=== PATIENT | female | born 1950 | race African-American/Black ===

== ENCOUNTER 2017-01-02 17:16 | Inpatient (IN) | payer MEDICARE, MEDICAID ==
[~2017-01-02] VITALS: Ht 167.6 cm; Wt 85.3 kg
[~2017-01-02 17:16] MED LIST: AMLODIPINE BESY10 MG ORAL; CATAPRES0.2 MG ORAL; HYDRALAZINE HC100 MG ORAL; MUSCLE SPASM MED; NEPHROVITE1 TAB ORAL; PAIN PILL; RENVELA800 MG ORAL; UNOBMED; VIT; VITAMIN D31000 UNI1 PO; XANAX0.25 MG ORAL; [UNRECOGNIZED DRUG - REMARK]
[2017-01-02 18:00] VITALS: BP 222/123
[2017-01-02] MEDS ORDERED: NEPRO CARB STE237 ML PO (18:58)
[2017-01-02] MEDS ORDERED: LOSARTAN POTASS50 MG ORAL (18:58)
[2017-01-02 20:00] VITALS: BP 215/120
[2017-01-02] MEDS: cloNIDine 0.2mg Tab ORAL SCH (20:25)
[2017-01-02] MEDS: Losartan 50mg tab ORAL SCH (20:25)
[2017-01-02 20:30] VITALS: BP 195/116
[2017-01-02] MEDS: Nephrovite tab ORAL SCH (21:00)
[2017-01-02] MEDS ORDERED: ALPRAZolam 0.25mg tab ORAL SCH (21:00)
[2017-01-02] MEDS: HydrALAZINE 50mg tab ORAL SCH (22:00)
[2017-01-02 22:15] VITALS: BP 142/75
[2017-01-03] VITALS: BP 154/77
[2017-01-03 04:00] VITALS: BP 158/85
[2017-01-03] MEDS: ALPRAZolam 0.25mg tab ORAL PRN ×2 (05:22→14:56)
[2017-01-03] MEDS: HydrALAZINE 50mg tab ORAL SCH ×4 (06:00→22:09)
[2017-01-03] MEDS: Losartan 50mg tab ORAL SCH ×2 (07:27→09:44)
[2017-01-03] MEDS ORDERED: Heparin Sod 1000 units/ml 10ml IV ONE (07:30)
[2017-01-03] MEDS: Nephrovite tab ORAL SCH (09:41)
[2017-01-03] MEDS: cloNIDine 0.2mg Tab ORAL SCH ×3 (09:41→17:20)
[2017-01-03 10:00] VITALS: BP 199/112
--- NOTE | 2017-01-03 10:08 | History and Physical Report ---
DATE OF ADMISSION: 01/02/2017 CHIEF COMPLAINT: Hypertensive emergency, intractable back pain, gait instability, possible TIA. HISTORY OF PRESENT ILLNESS: The patient is a 66-year-old female, who was admitted with complaints of hypertensive urgency, intractable back pain, inability to walk as well as intermittent numbness in the left upper extremity. According to the patient, she was well. She was seen a week ago in the office and was noted to be markedly hypertensive. It was at that time that she be admitted, but she declined. Systolic blood pressures at that time were in the 200 range, but she had not taken her medication. She had called me on the day of admission again with systolic blood pressure of 220. She had stated she had intermittent episodes of left upper extremity weakness. She also had worsening back pain and also having difficulty ambulating. In light of constellation of these symptoms, it was recommended she go to emergency room, but she refused. She was agreeable to direct admission and she is now admitted for further evaluation and care. According to the patient, she has been compliant with medications. She has had no falls. Denies any focal numbness or slurred speech. PAST MEDICAL HISTORY: As above. The patient has history of end-stage renal disease, history of diskitis, history of chronic indwelling dialysis catheter. CURRENT MEDICATIONS: Reconciled and reviewed. ALLERGIES: None. FAMILY HISTORY: None. SOCIAL HISTORY: Negative for alcohol or drugs. The patient is a smoker. REVIEW OF SYSTEMS: General: No fevers or chills. HEENT: No headaches or visual changes. Cardiopulmonary: No chest pain or shortness of breath. Gastrointestinal: No nausea or vomiting. Genitourinary: No urgency or frequency. Musculoskeletal: Positive severe intractable back pain. Neurologic: No history of seizures. Positive history of intermittent left-sided weakness. PHYSICAL EXAMINATION: VITAL SIGNS: Temperature 98 degrees, blood pressure 222/123, pulse of 87, respirations 21. GENERAL: The patient is a well-developed female, in no apparent distress. HEART: Regular rate and rhythm. LUNGS: Lungs are clear. ABDOMEN: Soft, nontender, nondistended. EXTREMITIES: Without clubbing, cyanosis, or edema. SKIN: The patient has a dialysis catheter in the chest wall. LABORATORY DATA: Laboratories are pending. ASSESSMENT: This is a pleasant female with complaints of hypertensive emergency. PROBLEMS: 1. Hypertensive emergency. 2. History of diskitis. 3. End-stage renal disease, on chronic hemodialysis. 4. Possible transient ischemic attack. 5. Intractable back pain, now worse. PLAN: Titrate blood pressure medication regimen. Renal consultation for hemodialysis. Consider imaging of the brain. PT/OT evaluation. The patient likely will need placement in a detention facility for monitor medications, for therapy for her back, and for blood pressure control. Anticipate at least two-night hospitalization to control the patient's blood pressure. Govind Vital M.D. DR: Kourtney JOB#: [id number] CC:
[2017-01-03 12:00] VITALS: BP 185/105
[2017-01-03 16:08] VITALS: BP 149/72
[2017-01-03] MEDS: ALPRAZolam 0.5mg tab ORAL SCH (17:21)
[2017-01-03 20:27] VITALS: BP 166/96
[2017-01-03 20:59] LABS: BASOPHILS % (AUTO) 0.8 % (0.0-2.0); LYMPHOCYTES % (AUTO) 19.8 % (20.0-45.0); MEAN CORPUSCULAR HEMOGLOBIN 32.4 PG (27.0-31.0); MEAN CORPUSCULAR HGB CONC 32.2 G/DL (32.0-36.0); MEAN CORPUSCULAR VOLUME 101 FL (80-99); MEAN PLATELET VOLUME 8.2 FL (6.5-10.1); MONOCYTES % (AUTO) 9.8 % (1.0-10.0); NEUTROPHILS % (AUTO) 69.6 % (45.0-75.0); PLATELET COUNT 135 K/UL (150-450); RED BLOOD COUNT 3.17 M/UL (4.20-5.40); RED CELL DISTRIBUTION WIDTH 12.8 % (11.6-14.8); WHITE BLOOD COUNT 7.3 K/UL (4.8-10.8)
[2017-01-03 21:16] LABS: ALBUMIN/GLOBULIN RATIO 1.4 (1.0-2.7); CALCIUM 8.9 mg/dL (8.6-10.2); CREATININE 8.8 mg/dL (0.5-0.9); GLOMERULAR FILTRATION RATE 5.5 mL/min (>60); PHOSPHORUS 5.8 mg/dL (2.5-4.8); POTASSIUM 4.6 mEQ/L (3.4-4.9); TOTAL PROTEIN 6.9 g/dL (6.6-8.7)
--- NOTE | 2017-01-03 21:29 | Consultation ---
DATE OF CONSULTATION: 01/03/2017 NEPHROLOGY CONSULTATION REFERRING PHYSICIAN: Govind Vital M.D. REASON FOR CONSULTATION: I am asked to evaluate this 66-year-old lady with end-stage renal disease and hypertension. HISTORY OF PRESENT ILLNESS: The patient is well known to me as an end-stage renal disease, on dialysis, however, receives by dialysis catheter. She is refusing AV fistula. She was noted recently to have severe blood pressure in the office of Dr. Vital. She often comes to dialysis with blood pressure in the range of 160-200 systolic and usually at the end of dialysis the blood pressures in the range of 130-140 and she states that her blood pressure when measured in the outpatient setting away from dialysis is usually less than 140, however, it is not clear if she is compliant with medicines. She has a history of chronic pain syndrome with low back pain and generalized weakness. She uses a walker. There is a prior history of diskitis. She has had prior catheter sepsis due to dialysis catheter, subsequently removed and replaced. PAST SURGICAL HISTORY: Multiple dialysis catheters. ALLERGIES: Contrast iodine. MEDICATIONS: According to our list at the dialysis unit, she has been Aranesp and Zemplar, adjusted by dose by labs and protocol in the dialysis unit. Xanax 2 mg t.i.d. p.r.n., Nephro-Ashish one daily, nifedipine uncertain dose, labetalol, Percocet, Colace, [place], metoprolol, losartan, hydralazine, amlodipine, Senna, Tylenol, temazepam and Renvela. I am not sure if she refilled these medications and takes them on a regular basis. She is very secretive about her medication management. HABITS: She is a former smoker, quit. Denies alcohol and drugs. SOCIAL HISTORY: She lived in the past in assisted-living facility and [facility] facility. She is single. REVIEW OF SYSTEMS: HEENT: Vision hearing is good. Endocrine: She has some mild obesity. No diabetes or thyroid disease. Pulmonary: She is a former cigarette smoker and quit. She has occasional bronchitis. Cardiac: History of congestive heart failure and diastolic dysfunction related to fluid overload from missing dialysis in the past. Gastrointestinal: No ulcers or GI bleeding. Genitourinary: No dysuria or hematuria. Musculoskeletal: History of chronic back pain and generalized joint pain. Neurologic: No CVA or seizures. PHYSICAL EXAMINATION: GENERAL: The patient is alert lady, in no acute distress. VITAL SIGNS: Temperature 97.9 degrees, respirations 20, pulse 76, and blood pressure 158/85. HEENT: Sclerae nonicteric. Ocular motions intact in all directions. Oral mucosa is moist. NECK: No adenopathy or thyroid enlargement. LUNGS: Clear. HEART: Rhythm is regular. I hear no murmur. ABDOMEN: Soft. No organomegaly. EXTREMITIES: No edema. NEUROLOGIC: She is alert and oriented. Cranial nerves are intact. IMPRESSION: 1. End-stage renal disease. 2. 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 3. History of intractable back pain. 4. History of anxiety disorder and possible underlying mood disorder. PLAN: Pain management is per Dr. Vital. Laboratories are pending. She has agreed for dialysis today and I will try to resume prior blood pressure regimen and monitor blood pressure, try to avoid hypotension on dialysis. Thank you so much for allowing me to participate in the care of this patient. Vega Marshall M.D. DR: PANCHITO JOB#: [id number] CC:
[2017-01-03] MEDS: Labetalol 200mg tab ORAL SCH (22:07)
[2017-01-04] VITALS: BP 145/73
--- NOTE | 2017-01-04 03:18 | Progress Note ---
DATE: 01/03/2017 CARDIOLOGY PROGRESS NOTE: SUBJECTIVE: The patient feels better. She completed hemodialysis and ultrafiltration very early this morning. She also has distress affecting her mood, and also elevates her blood pressure. OBJECTIVE: VITAL SIGNS: Blood pressure 166/96, pulse 70, respiratory rate 18, and no fevers. NECK: Supple. Jugular venous pressure elevated. LUNGS: Clear. CARDIAC: Regular rhythm and rate. Normal S1, S2 with a fourth heart sound. ABDOMEN: Soft and nontender. EXTREMITIES: Without edema. Dialysis catheter site in the subclavian region is without drainage. IMPRESSION: 1. Hypertensive urgency. 2. Malignant hypertension. 3. End-stage renal disease. 4. History of diskitis with chronic back pain. 5. Cerebrovascular disease with possible transient ischemic attack. 6. End-stage renal disease on hemodialysis. 7. Chronic diastolic congestive heart failure. PLAN: Hemodialysis with ultrafiltration. Titration of antihypertensive. Pain control. Stabilize clinical parameters prior to discharge. Anti-platelet and anti-lipid therapy with LDL goal less than 100. Bull Le M.D. DR: Joan JOB#: [id number] CC: JUVE
[2017-01-04 04:00] VITALS: BP 142/74
--- NOTE | 2017-01-04 04:09 | Consultation ---
DATE OF CONSULTATION: 01/02/2017 CARDIOLOGY CONSULTATION REQUESTING PHYSICIAN: Govind Vital M.D. REASON FOR CONSULTATION: Hypertensive urgency. HISTORY OF PRESENT ILLNESS: This is a 66-year-old female with a longstanding history of labile hypertension and end-stage renal disease on hemodialysis, presented to the emergency room with headache, increasing shortness of breath and intermittent numbness of her left upper extremity. The patient has been markedly hypertensive in Dr. Vital's office and had been taking her medications regularly although admits to being under increasing stress due to family issues. The patient refused hospitalization but on the subsequent day of following evaluation, she notified Dr. Vital has persistence and blood pressure readings above 220 systolic prompting this hospital stay. The patient has had worsened back pain during this period and more difficulty with ambulation. PAST MEDICAL HISTORY: End-stage renal disease, history of diskitis, chronic indwelling dialysis catheter, obesity, cerebrovascular disease and labile hypertension. ALLERGIES: None. MEDICATIONS: Prior to admission, reviewed and reconciled. FAMILY HISTORY: Notable for son with schizoaffective disorder. SOCIAL HISTORY: Active smoker. No alcohol or substance abuse. A 30 plus pack year history was estimated. REVIEW OF SYSTEMS: No fevers or chills. She has had some headaches. No loss of vision or hearing. No chest pain or shortness of breath. An outpatient echocardiogram revealed normal ejection fraction with a diastolic relaxation abnormality and mild valvular regurgitation with no significant pulmonary hypertension. She has dialysis three times a week. She has severe back pain and worsening symptoms recently. She has not noted any change in bowel habits. She has noted worsening weakness and numbness of her left side. She has not had seizures. There is no history of diabetes or thyroid impairment. PHYSICAL EXAMINATION: GENERAL: The patient is well developed, well nourished, and moderately obese. VITAL SIGNS: Blood pressure 222/123 in the emergency room, heart rate 87, and respiratory rate 21. She is afebrile. HEENT: Conjunctivae are pink. Fundi benign. Oropharynx is clear. NECK: Supple. Jugular venous pressure is grossly normal. LUNGS: With clear breath sounds. CARDIAC: Regular rhythm and rate. Normal S1 and S2. Point of maximum impulse sustained laterally displaced. There is a fourth heart sound. No appreciable murmur. ABDOMEN: Soft and nontender. No bruits. Dialysis catheter site is clean and dry. EXTREMITIES: No clubbing, cyanosis, or edema. NEUROLOGIC: Reveals symmetric strength. No asterixis. LABORATORY AND DIAGNOSTIC DATA: EKG is pending. Laboratories were reviewed. IMPRESSION: 1. Hypertensive urgency. 2. Malignant hypertension. 3. Hypertensive heart disease. 4. End-stage renal disease. 5. Chronic back pain. 6. Possible transient ischemic attack. PLAN: 1. Anti-platelet and anti-lipid therapy. 2. Stepwise titration of antihypertensives. 3. Avoid orthostasis. 4. Hemodialysis with ultrafiltration. 5. We will consider further central nervous system imaging if symptoms persists and review echocardiogram for any abnormal cardiac rhythm. Bull Le M.D. DR: KATHRYN JOB#: [id number] CC:
[2017-01-04] MEDS: HydrALAZINE 50mg tab ORAL SCH ×3 (05:08→20:22)
[2017-01-04 09:00] VITALS: BP 153/88
[2017-01-04] MEDS: cloNIDine 0.2mg Tab ORAL SCH ×4 (09:00→20:23)
[2017-01-04] MEDS: Labetalol 200mg tab ORAL SCH ×3 (09:00→22:32)
[2017-01-04] MEDS: Losartan 50mg tab ORAL SCH ×2 (09:00→10:48)
[2017-01-04] MEDS: Nephrovite tab ORAL SCH (09:14)
[2017-01-04] MEDS: ALPRAZolam 0.5mg tab ORAL SCH ×2 (09:14→20:24)
--- NOTE | 2017-01-04 13:18 | General Progress Note ---
Assessment/Plan Problem List: (1) Degenerative joint disease (2) Back pain (3) Fluid overload (4) End-stage renal disease ICD Codes: N18.6 - End-stage renal disease SNOMED: 36219524 (5) Hypertensive crisis ICD Codes: I16.9 - Hypertensive crisis, unspecified SNOMED: 879183894 Status: stable, progressing Assessment/Plan refer to snf cv south pain rx pt/ot compliance stressed Subjective ROS Limited/Unobtainable: No Constitutional: Reports: malaise, weakness HEENT: Reports: no symptoms Cardiovascular: Reports: chest pain Respiratory: Reports: shortness of breath Gastrointestinal/Abdominal: Reports: no symptoms Genitourinary: Reports: no symptoms Neurologic/Psychiatric: Reports: no symptoms Endocrine: Reports: no symptoms Hematologic/Lymphatic: Reports: no symptoms Allergies: Coded Allergies: POVIDONE-IODINE (Verified Allergy, Intermediate, Rash, 01/03/17) PENICILLINS (Verified Allergy, Unknown, 01/02/17) All Systems: reviewed and negative except above Subjective c/o chest pain and sov. refused bp meds but later accepted them states she is homeless now. Objective Last 24 Hour Vital Signs Date Time Temp Pulse Resp B/P Pulse Ox O2 Delivery O2 Flow Rate FiO2 01/04/17 10:50 73 153/88 01/04/17 10:48 153/88 01/04/17 10:48 153/88 01/04/17 09:00 97.2 73 20 153/88 96 Room Air 01/04/17 05:08 144/76 01/04/17 04:00 97.2 68 19 142/74 90 Room Air 01/04/17 00:00 97.7 68 21 145/73 94 Room Air 01/03/17 22:09 70 166/96 01/03/17 22:09 166/96 01/03/17 22:07 70 166/96 01/03/17 21:10 Room Air 01/03/17 20:27 98.1 70 19 166/96 98 Room Air 01/03/17 17:40 Room Air 01/03/17 17:20 149/72 01/03/17 16:08 97.2 76 18 149/72 95 Room Air 01/03/17 14:01 185/105 01/03/17 14:01 185/105 Intake and Output 01/03/17 01/04/17 19:00 07:00 Intake Total 600 ml 240 ml Balance 600 ml 240 ml Intake Oral 600 ml 240 ml # Voids 4 Laboratory Tests 01/03/17 18:30: White Blood Count 7.3, Red Blood Count 3.17L, Hemoglobin 10.2L, Hematocrit 31.8L , Mean Corpuscular Volume 101H, Mean Corpuscular Hemoglobin 32.4H, Mean Corpuscular Hemoglobin Concent 32.2, Red Cell Distribution Width 12.8, Platelet Count 135L, Mean Platelet Volume 8.2, Neutrophils (%) (Auto) 69.6, Lymphocytes ( %) (Auto) 19.8L, Monocytes (%) (Auto) 9.8, Eosinophils (%) (Auto) 0.0, Basophils (%) (Auto) 0.8, Sodium Level 138, Potassium Level 4.6, Chloride Level 96L, Carbon Dioxide Level 22, Anion Gap 20H, Blood Urea Nitrogen 59H, Creatinine 8.8H, Estimat Glomerular Filtration Rate 5.5, Glucose Level 106, Calcium Level 8.9, Phosphorus Level 5.8H, Total Bilirubin 0.4, Aspartate Amino Transf (AST/SGOT) 19, Alanine Aminotransferase (ALT/SGPT) 13, Alkaline Phosphatase 84, Total Protein 6.9, Albumin 4.1, Globulin 2.8, Albumin/Globulin Ratio 1.4, Hepatitis A IgM Antibody [Pending], Hepatitis B Surface Antigen [ Pending], Hepatitis B Core IgM Antibody [Pending], Hepatitis C Antibody [Pending ] Height (Feet): 5 Height (Inches): 6.00 Weight (Pounds): 188 General Appearance: WD/WN, alert Neck: supple Cardiovascular: regular rhythm Respiratory/Chest: lungs clear, normal breath sounds Abdomen: normal bowel sounds, non tender, soft, no organomegaly Edema: no edema noted Arm (L), no edema noted Arm (R), no edema noted Leg (L), no edema noted Leg (R), no edema noted Pedal (L), no edema noted Pedal (R), no edema noted Generalized GARDENIA CAGLE Jan 04, 2017 13:18
[2017-01-04 16:26] VITALS: BP 152/91
[2017-01-04 20:00] VITALS: BP 161/92
[2017-01-05] VITALS (15 sets, daily range): BP systolic 99–154; BP diastolic 56–91
--- NOTE | 2017-01-05 04:59 | Progress Note ---
DATE: 01/04/2017 SUBJECTIVE: The patient feels better. Less short of breath. She is more ambulatory. She had dialysis late last night. The patient has had episodic chest pain. Chest pain reproducible to my evaluation. OBJECTIVE: VITAL SIGNS: Blood pressure 161/92, pulse 74, and respiratory rate 18. NECK: Supple. LUNGS: Clear. CARDIAC: Regular rate and rate. Normal S1 and S2 with a fourth heart sound. ABDOMEN: Soft. EXTREMITIES: Trace edema. IMPRESSION: 1. Noncardiac chest pain. 2. Hypertensive urgency. 3. Labile hypertension. 4. Malignant-range blood pressure. 5. Acute on chronic diastolic congestive heart failure. 6. End-stage renal disease. 7. Acute on chronic pain syndrome. 8. Degenerative disk disease. PLAN: 1. Hemodialysis with ultrafiltration. 2. Symptom ____ pain control. 3. Cautious titration of antihypertensive regimen with close monitoring for orthostatics symptoms especially on dialysis day. Bull Le M.D. DR: RTAVIS JOB#: [id number] CC: JUVE
[2017-01-05] MEDS ORDERED: Heparin Sod 1000 units/ml 10ml IV ONE (06:00)
[2017-01-05] MEDS: HydrALAZINE 50mg tab ORAL SCH ×3 (06:19→22:00)
[2017-01-05] MEDS: cloNIDine 0.2mg Tab ORAL SCH ×3 (09:00→18:00)
[2017-01-05] MEDS: Labetalol 200mg tab ORAL SCH ×2 (09:00→21:00)
[2017-01-05] MEDS: Losartan 50mg tab ORAL SCH (09:00)
[2017-01-05] MEDS: Nephrovite tab ORAL SCH (09:00)
[2017-01-05] MEDS: ALPRAZolam 0.5mg tab ORAL SCH ×2 (09:00→18:00)
--- NOTE | 2017-01-05 21:27 | Nephrology Progress Note ---
Assessment/Plan Problem List: (1) Depression (2) Hypertensive crisis (3) End-stage renal disease (4) Degenerative joint disease Assessment stable on hd, bp trending better, voiced depressed symptoms with box turner, d/ w dr cohen Subjective Constitutional: Reports: weakness HEENT: Reports: no symptoms Genitourinary: Reports: no symptoms Neurologic/Psychiatric: Reports: no symptoms Objective Objective Last 24 Hour Vital Signs Date Time Temp Pulse Resp B/P Pulse Ox O2 Delivery O2 Flow Rate FiO2 01/05/17 18:00 149/76 01/05/17 16:00 96.8 97 20 149/76 97 Room Air 01/05/17 15:12 154/88 01/05/17 15:12 154/88 01/05/17 12:20 Room Air 01/05/17 12:20 Room Air 01/05/17 12:00 20 154/91 Room Air 01/05/17 12:00 97.3 88 20 144/87 99 Room Air 01/05/17 11:45 81 20 127/68 01/05/17 11:30 20 137/73 01/05/17 11:15 73 20 99/56 01/05/17 11:00 73 20 149/60 01/05/17 10:45 73 20 137/75 01/05/17 10:30 20 111/61 01/05/17 10:15 64 20 125/68 Room Air 01/05/17 10:00 66 20 132/72 Room Air 01/05/17 09:45 65 20 126/65 01/05/17 09:30 65 20 118/68 Room Air 01/05/17 09:15 61 20 125/63 Room Air 01/05/17 09:10 97.0 72 20 140/87 98 Room Air 01/05/17 09:00 20 133/71 Room Air 01/05/17 06:19 158/87 01/04/17 22:32 79 161/92 Intake and Output 01/04/17 01/05/17 19:00 07:00 Intake Total 240 ml 400 ml Balance 240 ml 400 ml Intake Oral 240 ml 400 ml # Voids 3 Height (Feet): 5 Height (Inches): 6.00 Weight (Pounds): 188 General Appearance: no apparent distress, alert EENT: normal ENT inspection Neck: normal alignment, supple Cardiovascular: normal rate Respiratory/Chest: lungs clear, normal breath sounds Abdomen: non tender, soft Extremities: non-tender Neurologic: line maintainer section II-XII grossly normal MONIKA BYRD Jan 05, 2017 21:27
--- NOTE | 2017-01-06 00:48 | Progress Note ---
DATE: 01/05/2017 CARDIOLOGY PROGRESS NOTE SUBJECTIVE: The patient is acutely depressed, tube feeding, and following dialysis. She felt suicidal and has a sitter at this time. OBJECTIVE: VITAL SIGNS: Blood pressure 154/88, pulse 88, respiration 20, and afebrile. NECK: Supple. LUNGS: Clear. CARDIAC: Regular rhythm and rate. Normal S1 and S2 with a fourth heart sound. ABDOMEN: Soft. EXTREMITIES: No edema. IMPRESSION: 1. Hypertensive urgency, resolved. 2. Hypertensive heart disease with labile blood pressure, improved. 3. Depression. 4. End-stage renal disease. 5. Anemia due to chronic kidney disease. PLAN: 1. Continue hemodialysis with ultrafiltration per regular schedule. 2. Psychiatric evaluation. 3. Titration of antihypertensives to avoid tighter blood pressure control as a significant component of her blood pressure elevation may be due to current psychiatric state. Bull Le M.D. DR: MITCH JOB#: [id number] CC:
[2017-01-06] MEDS: HydrALAZINE 50mg tab ORAL SCH ×2 (06:00→12:40)
[2017-01-06 08:00] VITALS: BP 166/84
[2017-01-06] MEDS: cloNIDine 0.2mg Tab ORAL SCH ×4 (09:00→17:36)
[2017-01-06] MEDS: ALPRAZolam 0.5mg tab ORAL SCH ×2 (10:08→17:36)
[2017-01-06] MEDS: Losartan 50mg tab ORAL SCH (10:08)
--- NOTE | 2017-01-06 10:19 | General Progress Note ---
Assessment/Plan Problem List: (1) Degenerative joint disease (2) Back pain (3) Fluid overload (4) End-stage renal disease ICD Codes: N18.6 - End-stage renal disease SNOMED: [id number] (5) Hypertensive crisis ICD Codes: I16.9 - Hypertensive crisis, unspecified SNOMED: 801043941 Status: stable, progressing Assessment/Plan refer to snf [facility] pain rx pt/ot compliance stressed pt states she was "just kidding" about shooting herself. await psych eval Subjective Date patient seen: Jan 05, 2017 ROS Limited/Unobtainable: No Constitutional: Reports: malaise, weakness HEENT: Reports: no symptoms Cardiovascular: Reports: no symptoms Respiratory: Reports: no symptoms Gastrointestinal/Abdominal: Reports: no symptoms Genitourinary: Reports: no symptoms Neurologic/Psychiatric: Reports: no symptoms Endocrine: Reports: no symptoms Hematologic/Lymphatic: Reports: no symptoms Allergies: Coded Allergies: POVIDONE-IODINE (Verified Allergy, Intermediate, Rash, 01/03/17) PENICILLINS (Verified Allergy, Unknown, 01/02/17) All Systems: reviewed and negative except above Subjective c/o suicidal ideation to dialysis nurse. asked the nurse where she can get a gun to shot herself. Objective Last 24 Hour Vital Signs Date Time Temp Pulse Resp B/P Pulse Ox O2 Delivery O2 Flow Rate FiO2 01/06/17 10:08 166/84 01/06/17 10:08 166/84 01/06/17 08:00 97.0 77 20 166/84 98 Room Air 01/06/17 06:00 162/72 01/05/17 18:00 149/76 01/05/17 16:00 96.8 97 20 149/76 97 Room Air 01/05/17 15:12 154/88 01/05/17 15:12 154/88 01/05/17 12:20 Room Air 01/05/17 12:20 Room Air 01/05/17 12:00 20 154/91 Room Air 01/05/17 12:00 97.3 88 20 144/87 99 Room Air 01/05/17 11:45 81 20 127/68 01/05/17 11:30 20 137/73 01/05/17 11:15 73 20 99/56 01/05/17 11:00 73 20 149/60 01/05/17 10:45 73 20 137/75 01/05/17 10:30 20 111/61 Intake and Output 01/05/17 01/06/17 19:00 07:00 Intake Total 480 ml 480 ml Output Total 684 ml Balance -204 ml 480 ml Intake Oral 480 ml 480 ml Output Other 684 ml # Voids 3 Height (Feet): 5 Height (Inches): 6.00 Weight (Pounds): 188 General Appearance: WD/WN, alert Neck: supple Cardiovascular: regular rhythm Respiratory/Chest: lungs clear Abdomen: normal bowel sounds, non tender, soft, no organomegaly Edema: no edema noted Arm (L), no edema noted Arm (R), no edema noted Leg (L), no edema noted Leg (R), no edema noted Pedal (L), no edema noted Pedal (R), no edema noted Generalized Neurologic: mine patrol II-XII grossly normal, no motor/sensory deficits, abnormal gait Skin: normal pigmentation Lymphatic: normal anterior cervical (L), normal anterior cervical (R), normal axillary (L), normal axillary (R), normal inguinal (L), normal inguinal (R), normal other, normal posterior cervical (L), normal posterior cervical (R), normal submandibular (L), normal submandibular (R), normal supraclavicular (L), normal supraclavicular (R) GARDENIA CAGLE Jan 06, 2017 10:19
[2017-01-06] MEDS: Labetalol 200mg tab ORAL SCH (11:02)
[2017-01-06] MEDS: Nephrovite tab ORAL SCH (11:02)
[2017-01-06 12:00] VITALS: BP 151/90
--- NOTE | 2017-01-06 14:42 | Nephrology Progress Note ---
Assessment/Plan Problem List: (1) Depression (2) Hypertensive crisis (3) End-stage renal disease (4) Degenerative joint disease Assessment stable on hd, bp trending better, voiced depressed symptoms with learning coach, d/ w dr cohen Subjective Constitutional: Reports: weakness HEENT: Reports: no symptoms Genitourinary: Reports: no symptoms Neurologic/Psychiatric: Reports: no symptoms Objective Objective Last 24 Hour Vital Signs Date Time Temp Pulse Resp B/P Pulse Ox O2 Delivery O2 Flow Rate FiO2 01/06/17 12:40 151/90 01/06/17 12:39 151/90 01/06/17 12:00 97.7 63 20 151/90 98 Room Air 01/06/17 11:02 77 166/84 01/06/17 10:08 166/84 01/06/17 09:00 166/84 01/06/17 08:00 97.0 77 20 166/84 98 Room Air 01/06/17 06:00 162/72 01/05/17 18:00 149/76 01/05/17 16:00 96.8 97 20 149/76 97 Room Air 01/05/17 15:12 154/88 01/05/17 15:12 154/88 Intake and Output 01/05/17 01/06/17 18:59 06:59 Intake Total 480 ml 480 ml Output Total 684 ml Balance -204 ml 480 ml Intake Oral 480 ml 480 ml Output Other 684 ml # Voids 3 # Bowel Movements 1 Height (Feet): 5 Height (Inches): 6.00 Weight (Pounds): 188 General Appearance: no apparent distress, alert EENT: normal ENT inspection Neck: normal alignment Cardiovascular: normal rate, regular rhythm Respiratory/Chest: lungs clear Abdomen: non tender, soft Extremities: other - no edema Neurologic: meat passer II-XII grossly normal MONIKA BYRD Jan 06, 2017 14:42
[2017-01-06 16:00] VITALS: BP 159/89
[2017-01-06] MEDS ORDERED: 1/2 NS 1000ml IV ONE (17:15)
[2017-01-06 17:36] VITALS: BP 159/89
--- NOTE | 2017-01-06 22:38 | Consultation ---
DATE OF CONSULTATION: HISTORY OF PRESENT ILLNESS: This is a 66-year-old lady with multiple medical problems who has been admitted to the hospital due to hypertensive crisis, back pain, and gait disturbance to rule out TIA. Psychiatry was consulted. However, the patient reported to her nurse that she is endorsing suicidal ideation. Then, later on during the day she told Dr. Vital that she was only " ". During the evaluation, the patient endorses depressed mood and anhedonia, however, she does not endorse any manic or psychotic symptoms. No suicidal or homicidal ideation. She is medically cleared and still awaiting psychiatric clearance. The patient only endorses anxiety and depressed mood. PAST MEDICAL HISTORY: Includes degenerative joint disease, back pain, end-stage renal disease, and hypertension. SUBSTANCE ABUSE HISTORY: No history of illicit drug use or alcohol. ALLERGIES: Penicillin and iodine. MENTAL STATUS EXAMINATION: The patient is alert and oriented x3. Mood is anxious. Affect is constricted. Congruent mood. Thought process is concrete. Thought content, no suicidal or homicidal ideation. ASSESSMENT: AXIS I Anxiety disorder by history, depression. The patient is not in any danger to self or others. She does not have high risk factors for suicide and she repeatedly stated that she is not suicidal and has no intention to kill herself. PLAN: 1. The patient will be continued on Xanax. 2. She would not like to be on any other medication beside Xanax . 3. Provided her with supportive therapy and reality orientation. 4. She will be return to [facility]. Cari Bell M.D. DR: Micki JOB#: [id number] CC:
--- NOTE | 2017-01-07 00:38 | Discharge Summary ---
DATE OF ADMISSION: 01/02/2017 DATE OF DISCHARGE: 01/06/2017 ADMISSION DIAGNOSES: 1. Hypertensive urgency. 2. Possible transient ischemic attack. 3. End-stage renal disease. 4. Depression. DISCHARGE DIAGNOSES: 1. Hypertensive urgency. 2. Possible transient ischemic attack. 3. End-stage renal disease. 4. Depression. HISTORY AND HOSPITAL COURSE: The patient is a 66-year-old female, who presented with complaints of hypertensive emergency. She had systolic blood pressures as high as 220/130. She was admitted. Her antihypertensive regimen was adjusted. Cardiology consultation was obtained. The patient also seen by Nephrology to continue her hemodialysis. The patient had previously reported episodes of intermittent weakness, suspect possibly secondary to transient ischemic attack symptoms from uncontrolled hypertension. The patient refused to any workup though, she was still somewhat weak and she required further monitoring therapy before going home and requested a detention facility, she will be discharged there and continued on current medications. DISCHARGE MEDICATIONS: Please see discharge medication list for discharge medications. DIET: Cardiac and renal diet. ACTIVITY: Ad-ochoa. FOLLOWUP: The patient will follow up in one to two days in detention facility. Govind Vital M.D. DR: CHARLY JOB#: [id number] CC:
--- NOTE | 2017-01-07 01:28 | Progress Note ---
DATE: 01/06/2017 SUBJECTIVE: The patient's discharge was held due to verbal suicidal thoughts. However, psychiatric consultation was obtained and it is confirmed that the patient is not suicidal. The patient has no chest pain or shortness of breath. She is ambulatory now. OBJECTIVE: VITAL SIGNS: Blood pressure range has been 150 to 160/80 to 90 systolic and heart rate in the 60s to 80 range, and she has been afebrile with respiratory rate of 20. Oxygen saturation 98% on room air. NECK: Supple. LUNGS: Clear. CARDIAC: Regular rhythm and rate. Normal S1, S2 with a fourth heart sound. ABDOMEN: Soft. EXTREMITIES: No edema. SKIN: Dialysis catheter site is dry. IMPRESSION: 1. Hypertensive urgency, now resolved. 2. Hypertensive heart disease, still with suboptimal but stable blood pressure control. 3. End-stage renal disease, on hemodialysis. 4. No signs of acute cerebrovascular deficit. PLAN: Stable from cardiovascular standpoint for detention facility. We will further up titrate antihypertensive medications and blood pressure control watching closely to avoid precipitous drops in blood pressure in the dialysis setting. Bull Le M.D. DR: RAMBO JOB#: [id number] CC:
== END 2017-01-06 20:57 | DRG 304 ==
LOC: 3E 17:16
PROC: 5A1D60Z (ICD-10-PCS; principal; 2017-01-03)
DX: I16.0 Hypertensive urgency (principal); N18.6 End stage renal disease; I50.32 Chronic diastolic (congestive) heart failure; G45.9 Transient cerebral ischemic attack, unspecified; Z99.2 Dependence on renal dialysis; M46.40 Discitis, unspecified, site unspecified; F32.9 Major depressive disorder, single episode, unspecified; Z91.041 Radiographic dye allergy status; Z87.891 Personal history of nicotine dependence; I13.2 Hypertensive heart and chronic kidney disease with heart failure and with stage 5 chronic kidney disease, or end stage renal disease
CPT/HCPCS: 36415; 80053; 84100; 85025; 86705; 86709; 86803; 87340

== ENCOUNTER 2018-01-16 16:57 | Inpatient (IN) | payer MEDICARE, MEDICAID ==
[~2018-01-16] VITALS: Ht 165.1 cm; Wt 85.3 kg
[~2018-01-16 16:57] MED LIST changes: +LOSARTAN POTASS50 MG ORAL; +NEPRO CARB STE237 ML PO
[2018-01-16 17:12] VITALS: BP 0/88
--- NOTE | 2018-01-16 17:52 | Emergency Room Report ---
History of Present Illness General Chief Complaint: Generalized Weakness Source: Patient Present Illness HPI 67-year-old female, history of end-stage renal disease, hypertension, living at home, presenting with generalized weakness, chest pain. States that she feels so tired, has to climb up stairs to go to her home. Also cleaning shortness of breath. No fever chills no cough. No abdominal pain. States that she has not urinated for 2 days. Normally gets dialysis Tuesday, was not able to get dialysis today because she felt too weak Allergies: Coded Allergies: POVIDONE-IODINE (Verified Allergy, Intermediate, Rash, 01/03/17) PENICILLINS (Verified Allergy, Unknown, 01/02/17) Patient History Past Medical History: see triage record Past Surgical History: none Pertinent Family History: none Reviewed Nursing Documentation: PMH: Agreed; PSxH: Agreed Nursing Documentation-PMH Hx Cardiac Problems: No Hx Hypertension: Yes Hx Cancer: No Hx Gastrointestinal Problems: No Hx Dialysis: Yes - Tuesday01/18/14 Hx Neurological Problems: No Review of Systems All Other Systems: negative except mentioned in HPI Physical Exam Vital Signs Date Time Temp Pulse Resp B/P (MAP) Pulse Ox O2 Delivery O2 Flow Rate FiO2 01/16/18 17:02 98.2 80 20 210/107 94 Room Air 98.2 Sp02 EP Interpretation: reviewed, normal General Appearance: alert, GCS 15, non-toxic, moderate distress Head: normocephalic, atraumatic Eyes: bilateral eye normal inspection, bilateral eye PERRL, bilateral eye EOMI ENT: normal ENT inspection, normal pharynx, normal voice, moist mucus membranes Neck: normal inspection, full range of motion, supple Respiratory: normal inspection, lungs clear, normal breath sounds, no respiratory distress, no retraction, no wheezing, speaking full sentences, chest symmetrical Cardiovascular #1: normal inspection, regular rate, rhythm, normal capillary refill Cardiovascular #2: 2+ radial (R), 2+ radial (L) Gastrointestinal: normal inspection, non tender, soft, non-distended, no guarding Musculoskeletal: normal inspection, back normal, normal range of motion, non- tender Neurologic: normal inspection, alert, oriented x3, responsive, motor strength/ tone normal, sensory intact, normal gait, speech normal Psychiatric: normal inspection, judgement/insight normal, memory normal Skin: normal inspection, normal color, no rash, warm/dry, well hydrated, normal turgor Medical Decision Making Diagnostic Impression: Primary Impression: Generalized weakness Additional Impressions: Hypertension ESRD (end stage renal disease) ER Course 67-year-old female generalized weakness DDX: End-stage renal disease, rule out electrolyte disturbance, ACS, UTI, pneumonia Plan: Obtain labs, ua, EKG, CXR ER course: Patient has been monitored during ED stay, HD stable was refusing blood draws by nursing staff, finally obtained by phlebolomist given clonidine for high bp still feels weak Disposition: Patient is to be admitted to tele D/W hospitalist Dr Cagle Please note that this Emergency Department Report was dictated using [employer] leather parts technology software, occasionally this can lead to erroneous entry secondary to interpretation by the dictation equipment. EKG Diagnostic Results EP Interpretation: Yes Rate: normal Rhythm: NSR ST Segments: Right bundle branch block, T-wave inversion in lead 3 and aVF ASA given to patient: No Rhythm Strip EP Interpretation: Yes Rate: 65 Rhythm: NSR, no PVCs, no ectopy Chest X-ray CXR: Ordered: Yes 1 view Indication: Pain EP interpretation: Yes Interpretation: Cardiomegaly, some interstitial fluid Impression: Cardiomegaly, some interstitial fluid Electronically signed by Andrew Jarrell MD Laboratory Tests Test 01/16/18 19:45 White Blood Count 6.6 K/UL (4.8-10.8) Red Blood Count 2.92 M/UL (4.20-5.40) L Hemoglobin 9.4 G/DL (12.0-16.0) L Hematocrit 28.7 % (37.0-47.0) L Mean Corpuscular Volume 99 FL (80-99) Mean Corpuscular Hemoglobin 32.3 PG (27.0-31.0) H Mean Corpuscular Hemoglobin Concent 32.8 G/DL (32.0-36.0) Red Cell Distribution Width 13.5 % (11.6-14.8) Platelet Count 177 K/UL (150-450) Mean Platelet Volume 9.4 FL (6.5-10.1) Neutrophils (%) (Auto) 72.6 % (45.0-75.0) Lymphocytes (%) (Auto) 15.4 % (20.0-45.0) L Monocytes (%) (Auto) 11.0 % (1.0-10.0) H Eosinophils (%) (Auto) 0.0 % (0.0-3.0) Basophils (%) (Auto) 0.9 % (0.0-2.0) Sodium Level 135 MMOL/L (136-145) L Potassium Level 3.9 MMOL/L (3.5-5.1) Chloride Level 98 MMOL/L (98-107) Carbon Dioxide Level 22 MMOL/L (21-32) Anion Gap 15 mmol/L (5-15) Blood Urea Nitrogen 57 mg/dL (7-18) H Creatinine 8.6 MG/DL (0.55-1.30) H Estimate Glomerular Filtration Rate 5.6 mL/min (>60) Glucose Level 92 MG/DL (74-106) Calcium Level 9.7 MG/DL (8.5-10.1) Total Bilirubin 0.8 MG/DL (0.2-1.0) Aspartate Amino Transferase (AST) 18 U/L (15-37) Alanine Aminotransferase (ALT) 22 U/L (12-78) Alkaline Phosphatase 87 U/L (46-116) Creatine Kinase MB 1.5 NG/ML (0.0-3.6) Troponin I 0.018 ng/mL (0.000-0.056) Pro-B-Type Natriuretic Peptide > 02715 pg/mL (0-125) H Total Protein 7.2 G/DL (6.4-8.2) Albumin 3.5 G/DL (3.4-5.0) Globulin 3.7 g/dL Albumin/Globulin Ratio 0.9 (1.0-2.7) L Last Vital Signs Date Time Temp Pulse Resp B/P (MAP) Pulse Ox O2 Delivery O2 Flow Rate FiO2 01/16/18 17:02 98.2 80 20 210/107 94 Room Air 98.2 Disposition: ADMITTED INPATIENT Condition: Serious Referrals: GARDENIA CAGLE (PCP) Andrew Jarrell M.D. Jan 16, 2018 17:52
[2018-01-16] MEDS ORDERED: cloNIDine 0.2mg Tab ORAL ONE (18:15)
[2018-01-16] MEDS ORDERED: MULTIVITAMINS1 EAC8 ORAL (18:45)
[2018-01-16] MEDS ORDERED: HYDRALAZINE HC100 MG ORAL (18:53)
[2018-01-16] MEDS ORDERED: CATAPRES0.3 MG ORAL (18:53)
[2018-01-16] MEDS ORDERED: NORMODYNE200 MG ORAL (18:53)
[2018-01-16] MEDS ORDERED: XANAX0.5 MG ORAL (18:53)
[2018-01-16 20:04] LABS: BASOPHILS % (AUTO) 0.9 % (0.0-2.0); HEMATOCRIT 28.7 % (37.0-47.0); HEMOGLOBIN 9.4 G/DL (12.0-16.0); LYMPHOCYTES % (AUTO) 15.4 % (20.0-45.0); MEAN CORPUSCULAR VOLUME 99 FL (80-99); NEUTROPHILS % (AUTO) 72.6 % (45.0-75.0); PLATELET COUNT 177 K/UL (150-450); RED BLOOD COUNT 2.92 M/UL (4.20-5.40); RED CELL DISTRIBUTION WIDTH 13.5 % (11.6-14.8); WHITE BLOOD COUNT 6.6 K/UL (4.8-10.8)
[2018-01-16 20:56] LABS: ANION GAP 15 mmol/L (5-15); BLOOD UREA NITROGEN 57 mg/dL (7-18); CALCIUM 9.7 MG/DL (8.5-10.1); CARBON DIOXIDE 22 MMOL/L (21-32); CHLORIDE 98 MMOL/L (98-107); CREATININE 8.6 MG/DL (0.55-1.30); POTASSIUM 3.9 MMOL/L (3.5-5.1); SODIUM 135 MMOL/L (136-145)
[2018-01-16] MEDS ORDERED: Norco 5mg/325mg tab ORAL PRN (21:00)
[2018-01-16 21:31] LABS: ALANINE AMINOTRANSFERASE 22 U/L (12-78); ALBUMIN 3.5 G/DL (3.4-5.0); ALBUMIN/GLOBULIN RATIO 0.9 (1.0-2.7); ALKALINE PHOSPHATASE 87 U/L (46-116); ASPARTATE AMINO TRANSFERASE 18 U/L (15-37); BILIRUBIN,TOTAL 0.8 MG/DL (0.2-1.0); CKMB 1.5 NG/ML (0.0-3.6)
[2018-01-16 22:11] VITALS: BP 178/80
[2018-01-16] MEDS: Labetalol 200mg tab ORAL SCH (22:55)
[2018-01-16] MEDS: HydrALAZINE 50mg tab ORAL SCH (22:58)
[2018-01-16] MEDS: cloNIDine 0.2mg Tab ORAL SCH (22:59)
[2018-01-16] MEDS: Losartan 50mg tab ORAL SCH (22:59)
[2018-01-16] MEDS: ALPRAZolam 0.5mg tab ORAL PRN (23:14)
[2018-01-16] MEDS: Heparin 5000 units/ml inj SUBQ SCH (23:14)
[2018-01-17 04:00] VITALS: BP 155/90
[2018-01-17] MEDS: HydrALAZINE 50mg tab ORAL SCH ×3 (06:30→22:20)
[2018-01-17] MEDS: cloNIDine 0.2mg Tab ORAL SCH (06:31)
[2018-01-17 08:00] VITALS: BP 153/91
[2018-01-17] MEDS: Heparin 5000 units/ml inj SUBQ SCH ×2 (08:49→20:54)
[2018-01-17] MEDS: ALPRAZolam 0.5mg tab ORAL PRN ×3 (08:49→22:57)
[2018-01-17] MEDS: Losartan 50mg tab ORAL SCH ×2 (08:49→08:57)
[2018-01-17] MEDS: Labetalol 200mg tab ORAL SCH ×2 (08:49→20:56)
[2018-01-17] MEDS: Multivitamin w/Minerals tab ORAL SCH (09:00)
[2018-01-17 11:35] VITALS: BP 167/80
--- NOTE | 2018-01-17 12:21 | Diagnostic Imaging Report ---
Indication: Chest pain Technique: One view of the chest Comparison: 01/20/2014 Findings: There is blunting of left costophrenic sulcus, could indicate a small pleural effusion. The lungs and right pleural spaces are clear. Left chest tunneled dialysis catheter is again demonstrated Impression: Possible small left pleural effusion Other findings as noted
[2018-01-17] MEDS ORDERED: cloNIDine 0.2mg Tab ORAL PRN (14:00)
[2018-01-17 16:00] VITALS: BP 187/88
--- NOTE | 2018-01-17 16:24 | Cardiology Report ---
APPROVED REPORT EKG Measurement Heart [id number] RI [id number] Normal sinus rhythm Left axis deviation Right bundle branch block Abnormal ECG t wave abn inferolaterlly cannot exclude ischemia
--- NOTE | 2018-01-17 17:15 | History and Physical Report ---
DATE OF ADMISSION: 01/16/2018 CHIEF COMPLAINT: Hypertensive urgency. HISTORY OF PRESENT ILLNESS: The patient is a 67-year-old female with history of malignant hypertension, congestive heart failure, end-stage renal disease. She has prior history of diskitis. She has history of noncompliance. She was presented to the emergency room and complains of feeling "sick." She was noted to be significantly hypertensive with systolic pressures as high as 200/101. The patient had been noncompliant with medications. She denies any fevers or chills. She does admit to some chest pain and nonproductive cough. Initial workup in the ER was significant for natriuretic peptide level greater than 35,000. Troponin was 0.018. White count was 6, hemoglobin was 9. Due to markedly elevated blood pressure, she is now admitted for further evaluation and care. PAST MEDICAL HISTORY: As above. PAST SURGICAL HISTORY: Includes PermCath. CURRENT MEDICATIONS: Reconciled and reviewed. ALLERGIES: Include penicillin and povidone iodine. FAMILY HISTORY: Noncontributory. SOCIAL HISTORY: There is no known history of tobacco, ethanol, or drugs. REVIEW OF SYSTEMS: GENERAL: Positive generalized malaise and weakness. HEENT: No headache or visual changes. CARDIOPULMONARY: No chest pain or shortness of breath. GASTROINTESTINAL: No nausea or vomiting. GENITOURINARY: No urgency, frequency. MUSCULOSKELETAL: No joint pain or swelling. NEUROLOGIC: No evidence of seizures. PHYSICAL EXAMINATION: VITAL SIGNS: Initial systolic pressure was 200, blood pressure , pulse of 64, respirations 18. GENERAL: The patient is well developed, in no apparent distress. HEART: Regular rate and rhythm. LUNGS: Clear. ABDOMEN: Soft, nontender, nondistended. EXTREMITIES: Without clubbing or cyanosis. CHEST WALL: Perm catheter noted. LABORATORY DATA: Reviewed. ASSESSMENT: This is a 67-year-old female admitted with hypertensive emergency, CHF, end-stage renal disease. PLAN: Titrate blood pressure medication regimen. Serial enzymes. Renal and Cardiology consultations to be obtained. Compliance has been stressed. Govind Vital M.D. DR: Kourtney JOB#: [id number] CC:
[2018-01-17] MEDS ORDERED: Lactulose 20gm/30ml UDC ORAL SCH (18:45)
--- NOTE | 2018-01-17 18:45 | Consultation ---
DATE OF CONSULTATION: 01/17/2018 CONSULTING PHYSICIAN: Vega Marshall M.D. REFERRING PHYSICIAN: Govind Vital M.D. CHIEF COMPLAINT/REASON FOR HOSPITALIZATION: The patient is a 67-year-old, lady with end-stage renal diseased and severe hypertension, admitted with fluid overload and generalized weakness. HISTORY OF PRESENT ILLNESS: The patient has end-stage renal disease, likely from malignant hypertension and has been on dialysis for several years. She presents with increasing leg edema and generalized weakness. She has had prior episodes of decompensated CHF related to fluid overload between dialysis treatments. She has severe hypertension and often her blood pressure in the outpatient dialysis unit is 160 to 200 systolic. I have tried over the last few years and encouraged her to increase her blood pressure medicines, but she has been reluctant to adjust blood pressure medicines regularly. She also has had dialysis with dialysis catheter. She refuses a arterial venous access. The patient has had chronic back pain, obesity and history of anxiety. PAST SURGICAL HISTORY: She has had 1 section. MEDICATIONS: Review of home medications include Mircera per dialysis protocol for anemia, clonidine 0.2 mg p.r.n. for elevated blood pressure and 0.2 mg b.i.d., Zemplar 6 mcg dialysis, Xanax 1 mg daily, mirtazapine 30 mg at bedtime, Nephro-Ashish 1 daily, nifedipine ER 60 mg daily, which I recently told her to take twice a day, labetalol 300 mg b.i.d., Percocet p.r.n., Colace p.r.n., metoprolol, I believe she is no longer taking, losartan 100 mg daily, and hydralazine 100 mg b.i.d., which I do not believe she has been taking regularly. HABITS: She is a former smoker for much of her adult life, quit within the last two years. She denies alcohol or drugs. SOCIAL HISTORY: In the past, she lived in an assisted living facility and a [facility] facility, but recently moved in to live with niece. REVIEW OF SYSTEMS: HEENT: The patient's hearing is good. ENDOCRINE: She has had some obesity. No diabetes or thyroid disease. PULMONARY: History of cigarette smoking and some bronchospasm in the past. None recently. No history of TB. CARDIAC: History of diastolic congestive heart failure and malignant hypertension. No typical chest pain. I think she has had evaluations for atypical chest pain in the past. GASTROINTESTINAL: No ulcers or GI bleeding. She has had occasional nausea. GENITOURINARY: No dysuria. She makes small amounts of urine. MUSCULOSKELETAL: History of chronic back pain and generalized joint pain. History of some pain seeking behavior. NEUROLOGIC: No CVA, syncope, or seizures. PSYCHIATRIC: History of anxiety and she prefers to take Xanax for the above. History of homelessness and living in facilities in the past. PHYSICAL EXAMINATION: GENERAL: The patient is seen receiving dialysis via dialysis PermCath from the left chest. VITAL SIGNS: Temperature 97.2 degrees, pulse 69, respirations 18, and blood pressure 167/80, and prior is high as 188/101. HEENT: Sclerae are nonicteric. Ocular motions intact in all directions. Oral mucosa moist. NECK: No adenopathy or thyroid enlargement. LUNGS: Clear. HEART: Rhythm is regular. There is an apical S4. I hear no murmur. ABDOMEN: Soft. No organomegaly or masses. EXTREMITIES: Show 2 to 3+ edema bilaterally. No evidence of inflammation or cellulitis. NEUROLOGIC: She is alert and oriented. Cranial nerves are intact. IMPRESSION: 1. End-stage renal disease. 2. Fluid overload and mild diastolic CHF. 3. Malignant hypertension. 4. Anxiety disorder. 5. Chronic back pain. PLAN: The patient will receive serial dialysis for fluid overload. We will titrate her blood pressure medicines and make further recommendations based on laboratory and clinical results. Thank you so much for allowing me to participate in the care of this patient. Vega Marshall M.D. DR: PANCHITO JOB#: [id number] CC:
[2018-01-17 20:00] VITALS: BP 168/89
[2018-01-17] MEDS: Lactulose 20gm/30ml UDC ORAL PRN (21:52)
[2018-01-18] VITALS: BP 160/79
[2018-01-18 04:06] VITALS: BP 138/72
[2018-01-18] MEDS: ALPRAZolam 0.5mg tab ORAL PRN ×2 (05:09→13:04)
[2018-01-18] MEDS: HydrALAZINE 50mg tab ORAL SCH ×3 (05:12→22:00)
--- NOTE | 2018-01-18 05:15 | Progress Note ---
DATE: 01/17/2018 CARDIOLOGY PROGRESS NOTE SUBJECTIVE: The patient is less short of breath, but still feels swollen. No chest pain. She is status post hemodialysis with ultrafiltration. She is increasingly anxious and she is requesting additional Xanax. OBJECTIVE: VITAL SIGNS: Blood pressure 168/89, pulse 63, respirations 18, and afebrile. Earlier, blood pressure was 187/88. NECK: Jugular venous pressure elevated. CHEST: Left subclavian chest wall catheter site clean and dry. LUNGS: Few rales. CARDIAC: Regular rhythm and rate. Normal S1, S2 with a fourth heart sound. ABDOMEN: Soft. EXTREMITIES: With 1+ dependent edema. DIAGNOSTIC DATA: Monitored rhythm, sinus. IMPRESSION: 1. Malignant hypertension. 2. Acute on chronic diastolic congestive heart failure. 3. Ischemic heart disease. 4. End-stage renal disease, on hemodialysis. PLAN: 1. Hemodialysis with ultrafiltration. 2. Ongoing up titration of antihypertensives. 3. Anxiolytics with limit set. 4. Anti-platelet and anti-lipid therapy residential. Bull Le M.D. DR: EDMAR JOB#: [id number] CC:
--- NOTE | 2018-01-18 05:15 | Consultation ---
DATE OF CONSULTATION: 01/16/2018 CARDIOLOGY CONSULTATION CONSULTING PHYSICIAN: Bull Le M.D. REASON FOR CONSULTATION: Congestive heart failure. HISTORY OF PRESENT ILLNESS: This is a 67-year-old female with known history of ischemic and hypertensive heart disease as well as end-stage renal disease, on hemodialysis, who was admitted to the hospital with increasing shortness of breath, leg swelling, and general weakness. She has been on dialysis for several years and has not missed any of her sessions recently. She does have severe hypertension and has had recurring episodes of blood pressure readings over 160 systolic. Her medications have been increased, but the patient has not been very compliant with the advanced dosing due to perceived side effects. The patient has a dialysis catheter in her left subclavian region for hemodialysis and has refused an AV access in the past. PAST MEDICAL HISTORY: Anxiety, obesity, chronic back pain, degenerative disk disease, peripheral artery disease, hypertensive heart disease with history of malignant hypertension, constipation, COPD. SOCIAL HISTORY: A 56-vyfb-hkyg-year smoker, quit only recently. No alcohol or substance abuse. FAMILY HISTORY: Noncontributory. MEDICATIONS: Reviewed and reconciled. ALLERGIES: None known. ALLERGIES: Include penicillin and iodine. REVIEW OF SYSTEMS: No fevers or chills. No cough or upper respiratory symptoms. No history of seizures or stroke. No change in bowel habits. She has chronic constipation. She is on dialysis 3 times a week. She has had prior echocardiograms revealing normal ejection fraction, concentric hypertrophy, and diastolic dysfunction. There is no history of blood clots in the legs. She does have history of chronic cough, but is not on regular steroids. There is no history of diabetes or thyroid disorder. She suffered a [id number] myocardial infarction within the last two years and had a myocardial perfusion scan at [facility] that revealed less than 10% likelihood of flow-limiting coronary disease. PHYSICAL EXAMINATION: VITAL SIGNS: Blood pressure 182/92, pulse 72, respirations 18, and afebrile. HEENT: Conjunctivae pink. Oropharynx clear. NECK: Supple. Jugular venous pressure is elevated to the jaw. LUNGS: With diminished breath sounds. Scattered rales. CARDIAC: Regular rhythm and rate. Normal S1, S2 with a fourth heart sound and laterally displaced point of maximum impulse with this pain. ABDOMEN: Soft, nontender with no bruits. EXTREMITIES: A 1+ dependent edema. SKIN: Left chest wall subclavian catheter site clean and dry. DIAGNOSTIC DATA: EKG, sinus rhythm, leftward axis, right bundle-branch block. LABORATORY DATA: Notable for pro-natriuretic peptide over 35,000. Troponin 0.018. BUN 57, creatinine 8.6, potassium 3.9. White count 6.6, hemoglobin 9.4. IMPRESSION: 1. Acute on chronic diastolic congestive heart failure. 2. Malignant hypertension/hypertensive urgency. 3. End-stage renal disease. 4. Anemia of chronic kidney disease. 5. Ischemic cardiomyopathy. 6. Chronic stable angina. PLAN: 1. Cardiac monitoring. 2. Serial troponin. 3. Up-titrate antihypertensives. 4. Hemodialysis with ultrafiltration. 5. DVT prophylaxis. 6. Monitor for side effects of medications. 7. Anti-platelet therapy and anti-lipid drugs with statin for LDL goal less than 100. Bull Le M.D. DR: Dominick JOB#: [id number] CC:
[2018-01-18] MEDS ORDERED: LORazepam 1mg tab ORAL ONE (06:15)
[2018-01-18 08:00] VITALS: BP 129/62
[2018-01-18] MEDS: Multivitamin w/Minerals tab ORAL SCH (08:52)
[2018-01-18] MEDS: Heparin 5000 units/ml inj SUBQ SCH ×2 (08:54→21:00)
--- NOTE | 2018-01-18 08:55 | General Progress Note ---
Assessment/Plan Problem List: (1) Pleural effusion (2) Hypertensive crisis ICD Codes: I16.9 - Hypertensive crisis, unspecified SNOMED: 846469727 (3) Fluid overload (4) Back pain (5) Generalized weakness ICD Codes: R53.1 - Weakness SNOMED: 76249399 (6) ESRD (end stage renal disease) ICD Codes: N18.6 - End stage renal disease SNOMED: 66843786 (7) Hypertension ICD Codes: I10 - Essential (primary) hypertension SNOMED: 37648392 Status: stable, progressing Assessment/Plan monitor BP HD pt/ot compliance stressed to med surg needs snf. Subjective ROS Limited/Unobtainable: No Constitutional: Reports: malaise, weakness HEENT: Reports: no symptoms Cardiovascular: Reports: no symptoms Respiratory: Reports: cough Gastrointestinal/Abdominal: Reports: no symptoms Genitourinary: Reports: no symptoms Neurologic/Psychiatric: Reports: anxiety Endocrine: Reports: no symptoms Hematologic/Lymphatic: Reports: no symptoms Allergies: Coded Allergies: POVIDONE-IODINE (Verified Allergy, Intermediate, Rash, 01/03/17) PENICILLINS (Verified Allergy, Unknown, 01/02/17) All Systems: reviewed and negative except above Subjective c/o insomnia and anxiety. cant sleep. noncompliant with meds, diet and cadiac monitor. going out to smoke. Objective Last 24 Hour Vital Signs Date Time Temp Pulse Resp B/P (MAP) Pulse Ox O2 Delivery O2 Flow Rate FiO2 01/18/18 08:00 97.6 72 20 129/62 97 97.6 01/18/18 05:12 136/67 01/18/18 04:06 97.0 75 18 138/72 95 97.0 01/18/18 03:40 82 01/18/18 00:00 98.0 65 18 160/79 95 98.0 01/17/18 23:28 69 01/17/18 22:20 180/104 01/17/18 20:57 63 168/89 01/17/18 20:56 63 168/89 01/17/18 20:00 60 01/17/18 20:00 97.0 63 18 168/89 97 97.0 01/17/18 16:00 60 01/17/18 16:00 97.0 63 18 187/88 95 Room Air 97.0 01/17/18 15:27 187/88 01/17/18 13:41 Room Air 01/17/18 12:00 56 01/17/18 11:35 97.2 69 18 167/80 95 Room Air 97.2 01/17/18 08:57 153/91 Intake and Output 01/17/18 01/18/18 19:00 07:00 Output Total 3500 ml Balance -3500 ml Output Hemodialysis UF 3500 ml # Voids 2 Height (Feet): 5 Height (Inches): 5.00 Weight (Pounds): 194 General Appearance: WD/WN, alert Neck: supple Cardiovascular: regular rhythm Respiratory/Chest: lungs clear Abdomen: normal bowel sounds, non tender, no organomegaly Edema: no edema noted Arm (L), no edema noted Arm (R), no edema noted Leg (L), no edema noted Leg (R), no edema noted Pedal (L), no edema noted Pedal (R), no edema noted Generalized GARDENIA CAGLE Jan 18, 2018 08:55
[2018-01-18] MEDS: Losartan 50mg tab ORAL SCH ×3 (09:00→11:37)
[2018-01-18] MEDS: Labetalol 200mg tab ORAL SCH ×4 (09:00→22:35)
[2018-01-18 12:00] VITALS: BP 118/64
[2018-01-18] MEDS: Lactulose 20gm/30ml UDC ORAL PRN (13:11)
[2018-01-18] MEDS ORDERED: Heparin Sod 1000 units/ml 10ml IV ONE (14:15)
--- NOTE | 2018-01-18 15:22 | Nephrology Progress Note ---
Assessment/Plan Problem List: (1) Diastolic CHF, acute on chronic (2) End-stage renal disease (3) Hypertensive crisis (4) Fluid overload (5) Pleural effusion Plan serial dialysis, fluid removal Subjective HEENT: Reports: no symptoms Genitourinary: Reports: no symptoms Neurologic/Psychiatric: Reports: no symptoms Objective Objective Last 24 Hour Vital Signs Date Time Temp Pulse Resp B/P (MAP) Pulse Ox O2 Delivery O2 Flow Rate FiO2 01/18/18 12:00 97.7 68 19 118/64 99 Room Air 97.7 01/18/18 11:40 72 129/62 01/18/18 11:38 72 129/62 01/18/18 11:37 129/62 01/18/18 08:00 97.6 72 20 129/62 97 97.6 01/18/18 05:12 136/67 01/18/18 04:06 97.0 75 18 138/72 95 97.0 01/18/18 03:40 82 01/18/18 00:00 98.0 65 18 160/79 95 98.0 01/17/18 23:28 69 01/17/18 22:20 180/104 01/17/18 20:57 63 168/89 01/17/18 20:56 63 168/89 01/17/18 20:00 60 01/17/18 20:00 97.0 63 18 168/89 97 97.0 01/17/18 16:00 60 01/17/18 16:00 97.0 63 18 187/88 95 Room Air 97.0 01/17/18 15:27 187/88 Intake and Output 01/17/18 01/18/18 19:00 07:00 Output Total 3500 ml Balance -3500 ml Output Hemodialysis UF 3500 ml # Voids 2 Height (Feet): 5 Height (Inches): 5.00 Weight (Pounds): 194 General Appearance: no apparent distress, alert EENT: normal ENT inspection Neck: normal alignment, supple Cardiovascular: normal rate, regular rhythm Respiratory/Chest: lungs clear Abdomen: soft Extremities: moderate edema Neurologic: 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
[2018-01-18 16:00] VITALS: BP 133/78
[2018-01-18] MEDS ORDERED: Norco 5mg/325mg tab ORAL PRN (17:00)
[2018-01-18] MEDS ORDERED: Lactulose 20gm/30ml UDC ORAL PRN (17:06)
[2018-01-18] MEDS ORDERED: cloNIDine 0.2mg Tab ORAL PRN (18:00)
[2018-01-18 19:22] VITALS: BP 126/51
[2018-01-19 00:19] VITALS: BP 123/63
[2018-01-19] MEDS: ALPRAZolam 0.5mg tab ORAL PRN ×3 (00:31→14:59)
--- NOTE | 2018-01-19 01:00 | Progress Note ---
DATE: 01/18/2018 CARDIOLOGY PROGRESS NOTE SUBJECTIVE: The patient feels anxious. She has nicotine withdrawal, refuses a patch and is going outside to smoke. She is status post dialysis with ultrafiltration. OBJECTIVE: VITAL SIGNS: Blood pressure 129/62, pulse 72, respirations 20. 1+ dependent edema. LUNGS: Diminished breath sounds with few rales. HEART: Regular rhythm and rate. Normal S1, S2 with a fourth heart sound. ABDOMEN: Soft with difficult assessment for ascites due to obesity. IMPRESSION: 1. Acute on chronic diastolic congestive heart failure. 2. End-stage renal disease. 3. Hypertensive urgency, improved. 4. Pleural effusions. 5. Chronic obstructive pulmonary disease. 6. Nicotine addiction. 7. Ischemic cardiomyopathy with stable angina. PLAN: 1. Titration of antihypertensive and anti-failure regimen. Hemodialysis with ultrafiltration for volume management. 2. Continue efforts at smoking cessation. 3. Anti-platelet and anti-lipid drugs with goals of therapy previously noted. Bull Le M.D. DR: EDMAR JOB#: [id number] CC:
[2018-01-19] MEDS: Zolpidem 5mg tab ORAL PRN (01:39)
[2018-01-19] MEDS: HydrALAZINE 50mg tab ORAL SCH ×3 (06:00→22:19)
[2018-01-19 08:00] VITALS: BP 148/76
--- NOTE | 2018-01-19 08:19 | General Progress Note ---
Assessment/Plan Problem List: (1) Pleural effusion (2) Hypertensive crisis ICD Codes: I16.9 - Hypertensive crisis, unspecified SNOMED: 038564193 (3) Fluid overload (4) Back pain (5) Generalized weakness ICD Codes: R53.1 - Weakness SNOMED: 60242532 (6) ESRD (end stage renal disease) ICD Codes: N18.6 - End stage renal disease SNOMED: 45535259 (7) Hypertension ICD Codes: I10 - Essential (primary) hypertension SNOMED: 21316946 Status: stable, progressing Assessment/Plan monitor BP HD today pt/ot compliance stressed needs snf. Subjective ROS Limited/Unobtainable: No Constitutional: Reports: malaise, weakness HEENT: Reports: no symptoms Cardiovascular: Reports: no symptoms Respiratory: Reports: no symptoms Gastrointestinal/Abdominal: Reports: no symptoms Genitourinary: Reports: no symptoms Neurologic/Psychiatric: Reports: no symptoms Endocrine: Reports: no symptoms Hematologic/Lymphatic: Reports: no symptoms Allergies: Coded Allergies: POVIDONE-IODINE (Verified Allergy, Intermediate, Rash, 01/03/17) PENICILLINS (Verified Allergy, Unknown, 01/02/17) All Systems: reviewed and negative except above Subjective refused HD last night. no new complaints. no fever or chills. no cp Objective Last 24 Hour Vital Signs Date Time Temp Pulse Resp B/P (MAP) Pulse Ox O2 Delivery O2 Flow Rate FiO2 01/19/18 06:00 123/63 01/19/18 04:00 Room Air 01/19/18 00:19 96.8 57 20 123/63 93 Room Air 96.8 01/19/18 00:00 Room Air 01/18/18 22:58 61 123/57 01/18/18 22:35 61 123/67 01/18/18 22:00 126/51 01/18/18 20:00 Room Air 01/18/18 19:22 97.7 68 20 126/51 97 Room Air 97.7 01/18/18 16:00 97.0 78 21 133/78 98 Room Air 97.0 01/18/18 14:00 118/64 01/18/18 12:00 97.7 68 19 118/64 99 Room Air 97.7 01/18/18 11:40 72 129/62 01/18/18 11:38 72 129/62 01/18/18 11:37 129/62 Intake and Output 01/18/18 01/19/18 19:00 07:00 Intake Total 300 ml Balance 300 ml Intake Oral 300 ml # Voids 2 4 # Bowel Movements 2 1 Height (Feet): 5 Height (Inches): 5.00 Weight (Pounds): 193 General Appearance: WD/WN, alert Neck: supple Cardiovascular: normal rate, regular rhythm Respiratory/Chest: chest wall non-tender, lungs clear, normal breath sounds Abdomen: normal bowel sounds, non tender, soft, no organomegaly Edema: no edema noted Arm (L), no edema noted Arm (R), no edema noted Leg (L), no edema noted Leg (R), no edema noted Pedal (L), no edema noted Pedal (R), no edema noted Generalized Neurologic: ditch 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
[2018-01-19] MEDS: Heparin 5000 units/ml inj SUBQ SCH ×2 (09:00→20:46)
[2018-01-19] MEDS: Labetalol 200mg tab ORAL SCH ×2 (09:16→20:48)
[2018-01-19] MEDS: Multivitamin w/Minerals tab ORAL SCH (09:16)
[2018-01-19] MEDS: Losartan 50mg tab ORAL SCH (09:16)
[2018-01-19 12:00] VITALS: BP 144/72
--- NOTE | 2018-01-19 13:04 | Nephrology Progress Note ---
Assessment/Plan Problem List: (1) Diastolic CHF, acute on chronic (2) End-stage renal disease (3) Hypertensive crisis (4) Fluid overload (5) Pleural effusion Plan serial dialysis, fluid removal, she refused HD 01/18 to reschedule 01/19 Subjective Constitutional: Reports: weakness HEENT: Reports: no symptoms Genitourinary: Reports: no symptoms Neurologic/Psychiatric: Reports: no symptoms Objective Objective Last 24 Hour Vital Signs Date Time Temp Pulse Resp B/P (MAP) Pulse Ox O2 Delivery O2 Flow Rate FiO2 01/19/18 12:00 97.3 69 18 144/72 95 97.3 01/19/18 09:18 79 148/76 01/19/18 09:16 148/76 01/19/18 09:16 79 148/76 01/19/18 08:00 Room Air 01/19/18 08:00 97.3 79 20 148/76 95 97.3 01/19/18 06:00 123/63 01/19/18 04:00 Room Air 01/19/18 00:19 96.8 57 20 123/63 93 Room Air 96.8 01/19/18 00:00 Room Air 01/18/18 22:58 61 123/57 01/18/18 22:35 61 123/67 01/18/18 22:00 126/51 01/18/18 20:00 Room Air 01/18/18 19:22 97.7 68 20 126/51 97 Room Air 97.7 01/18/18 16:00 97.0 78 21 133/78 98 Room Air 97.0 01/18/18 14:00 118/64 Intake and Output 01/18/18 01/19/18 19:00 07:00 Intake Total 300 ml Balance 300 ml Intake Oral 300 ml # Voids 2 4 # Bowel Movements 2 1 Height (Feet): 5 Height (Inches): 5.00 Weight (Pounds): 193 General Appearance: no apparent distress, alert EENT: normal ENT inspection Neck: normal alignment Cardiovascular: normal rate, regular rhythm Respiratory/Chest: lungs clear, normal breath sounds Abdomen: non tender, soft Extremities: trace edema Neurologic: 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
[2018-01-19 16:00] VITALS: BP 150/88
[2018-01-19] MEDS ORDERED: Dyna-Hex 2% Top Sol 2oz TOPIC SCH (20:00)
[2018-01-19 20:16] VITALS: BP 185/96
[2018-01-20 00:06] VITALS: BP 142/74
[2018-01-20] MEDS: Zolpidem 5mg tab ORAL PRN (00:13)
[2018-01-20] MEDS: ALPRAZolam 0.5mg tab ORAL PRN ×2 (00:29→09:28)
--- NOTE | 2018-01-20 03:00 | Progress Note ---
DATE: 01/19/2018 CARDIOLOGY PROGRESS NOTE SUBJECTIVE: The patient still has difficulty sleeping. She refused hemodialysis yesterday. She has not had any chest pain, but feels achy and short of breath. OBJECTIVE: VITAL SIGNS: Blood pressure 123/63, pulse 57, and respiratory rate 20. NECK: Supple. LUNGS: Clear. CARDIAC: Regular rhythm and rate. Normal S1 and S2 with a fourth heart sound. ABDOMEN: Soft. EXTREMITIES: No edema. Catheter site is clean and dry. IMPRESSION: 1. Ischemic cardiomyopathy. 2. Stable angina with underlying coronary artery disease. 3. Insomnia. 4. Hypertensive urgency, recovered. 5. Acute on chronic diastolic congestive heart failure, improved. 6. Pleural effusion, expected to improve with hemodialysis and ultrafiltration. 7. End-stage renal disease. PLAN: 1. Re-attempt dialysis and ultrafiltration today. 2. Maintain and titrate cardiovascular regimen otherwise for optimal blood pressure control. 3. Antiplatelet therapy half-way. 4. Statin drug for LDL goal less than 100. Bull Le M.D. DR: JOHN JOB#: [id number] CC:
[2018-01-20 04:35] VITALS: BP 159/88
[2018-01-20] MEDS: HydrALAZINE 50mg tab ORAL SCH (05:59)
[2018-01-20 08:06] VITALS: BP 157/88
[2018-01-20] MEDS: Multivitamin w/Minerals tab ORAL SCH (08:57)
[2018-01-20 08:58] VITALS: BP 157/88
[2018-01-20] MEDS: Labetalol 200mg tab ORAL SCH (08:58)
[2018-01-20] MEDS: Losartan 50mg tab ORAL SCH (08:58)
[2018-01-20] MEDS: Heparin 5000 units/ml inj SUBQ SCH ×2 (09:00→09:01)
[2018-01-20] MEDS ORDERED: Heparin Sod 1000 units/ml 10ml IV SCH (09:00)
--- NOTE | 2018-01-20 11:30 | Nephrology Progress Note ---
Assessment/Plan Problem List: (1) Diastolic CHF, acute on chronic (2) End-stage renal disease (3) Hypertensive crisis (4) Fluid overload (5) Pleural effusion Plan serial dialysis, fluid removal, she refused HD 01/18 to reschedule 01/19 done, UF 3000, dc plan in process Subjective Constitutional: Reports: weakness HEENT: Reports: no symptoms Genitourinary: Reports: no symptoms Neurologic/Psychiatric: Reports: no symptoms Objective Objective Last 24 Hour Vital Signs Date Time Temp Pulse Resp B/P (MAP) Pulse Ox O2 Delivery O2 Flow Rate FiO2 01/20/18 08:58 86 157/88 01/20/18 08:58 157/88 01/20/18 08:58 86 157/88 01/20/18 08:06 97.5 86 18 157/88 96 97.5 01/20/18 05:59 163/73 01/20/18 04:35 97.3 79 21 159/88 92 97.3 01/20/18 00:06 97.5 80 20 142/74 96 97.5 01/19/18 22:19 159/85 01/19/18 20:48 92 145/84 01/19/18 20:47 92 145/84 01/19/18 20:16 97.3 84 16 185/96 97.3 01/19/18 19:10 Room Air 01/19/18 16:00 97.7 90 18 150/88 95 97.7 01/19/18 16:00 Room Air 01/19/18 15:01 159/91 01/19/18 12:00 97.3 69 18 144/72 95 97.3 01/19/18 12:00 Room Air Intake and Output 01/19/18 01/20/18 19:00 07:00 Intake Total 240 ml 330 ml Output Total 3000 ml Balance 240 ml -2670 ml Intake Oral 240 ml 330 ml Output Hemodialysis UF 3000 ml # Voids 2 # Bowel Movements 1 Height (Feet): 5 Height (Inches): 5.00 Weight (Pounds): 188 General Appearance: no apparent distress, alert EENT: normal ENT inspection Neck: normal alignment Cardiovascular: normal rate Respiratory/Chest: lungs clear Abdomen: non tender, soft Extremities: trace edema 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
--- NOTE | 2018-01-20 23:00 | Progress Note ---
DATE: 01/20/2018 SUBJECTIVE: The patient is anxious and is unsure whether she has decided [facility]. She is going home with her niece. She does have concerned that she will not feel well at home. She is status post hemodialysis with ultrafiltration. OBJECTIVE: VITAL SIGNS: Her blood pressure 157/88, pulse 86, respiratory rate 18 and no fevers. LUNGS: Clear. CARDIAC: Regular rhythm rate. Normal S1 and S2 with a fourth heart sound. ABDOMEN: Soft. EXTREMITIES: With trace edema. Catheter site clean and dry. IMPRESSION: 1. Hypertensive urgency, resolved, but still with suboptimal blood pressure control. 2. Hypertensive heart disease. 3. Ischemic cardiomyopathy. 4. Stable angina. 5. Acute on chronic diastolic congestive heart failure with pleural effusion, improved. 6. End-stage renal disease with hemodialysis. PLAN: Continue hemodialysis with ultrafiltration as outpatient. Bull Le M.D. DR: JOHN JOB#: [id number] CC:
--- NOTE | 2018-01-21 11:56 | Discharge Summary ---
Discharge Summary Discharge Summary Discharge Summary DATE OF ADMISSION: 01/16/2018 DATE OF DISCHARGE: 01/20/2018 REASON FOR ADMISSION: 67 years old female with past medical history of malignant hypertension, congestive heart failure, end-stage renal disease, COPD, prior history of discitis, noncompliance, presented to emergency department with complaints of feeling sick. Patient was found to be significantly hypertensive with blood pressure 200/101. Patient denied fever or chills. She admitted to some chest pain and nonproductive cough. Pro BNP -greater than 35,000. Troponin - 0.018. No leukocytosis, hemoglobin -9. Chest x-ray showed small left pleural effusion. Patient was admitted for further management with diagnosis of hypertensive urgency, end-stage renal disease, on hemodialysis, generalized weakness, congestive heart failure. CONSULTANTS: livestock speculator manager of transportation Dr. Marshall HOSPITAL COURSE: Patient admitted to telemetry floor. Cardiology and nephrology consults were requested. Dialysis provided as per manager of transportation orders with close monitoring of renal parameters and electrolytes. Nephrotoxins were avoided. Blood pressure was managed with multiple regimen of antihypertensives , including labetalol, nifedipine, hydralazine and angiotensin receptor karena. Blood pressures stabilized. According to livestock speculator, patient was placed on cardiovascular regimen, consisting of multiple antihypertensive medication for optimal blood pressure control, manager intermediate antiplatelet medication and statin with goal to keep LDL below 100. Supplemental oxygen and pulmonary toilet provided as needed to keep pulse oximetry above 92%. Pulse oximetry prior to discharge was stable on room air. Patient was counseled on abstinence from smoking. Patient declined nicotine patch. DVT prophylaxis provided. Patient was counseled on compliance with medication regimen. Patient was working with physical and occupational therapists. Hemoglobin and hematocrit were closely monitored no need for transfusion at this time. Patient was stable for discharge home with outpatient follow-up with hemodialysis, stressed compliance with medication regimen. FINAL DIAGNOSES: Hypertensive urgency, resolved Hypertensive heart disease Ischemic cardiomyopathy Acute on chronic diastolic congestive heart failure with pleural effusion, improved Stable angina with underlying coronary artery disease COPD Nicotine addiction Anemia of chronic kidney disease DISCHARGE MEDICATIONS: See Medication Reconciliation list. DISCHARGE INSTRUCTIONS: Patient was discharged home. Follow up with primary care provider in one week. Follow up with outpatient hemodialysis. Stressed importance of compliance with medication regimen. Advised on smoking cessation. I have been assigned to dictate discharge summary for this account. I was not involved in the patient's management. Eddy Carrein),Tia GREGORIO Jan 21, 2018 11:56
== END 2018-01-20 13:00 | disposition home or self-care (01) | DRG 304 ==
LOC: EMR 17:34 → 2E 18:42 → EDBEDREQ 20:28 → 2E 21:10 → 4W 01-18 15:15
PROC: 5A1D70Z Performance of Urinary Filtration, Intermittent, Less than 6 Hours Per Day (ICD-10-PCS; principal; 2018-01-17)
DX: I16.0 Hypertensive urgency (principal); N18.6 End stage renal disease; I50.33 Acute on chronic diastolic (congestive) heart failure; I13.2 Hypertensive heart and chronic kidney disease with heart failure and with stage 5 chronic kidney disease, or end stage renal disease; Z99.2 Dependence on renal dialysis; R53.1 Weakness; D63.1 Anemia in chronic kidney disease; M54.9 Dorsalgia, unspecified; E87.70 Fluid overload, unspecified; Z91.14 Patient's other noncompliance with medication regimen; Z88.0 Allergy status to penicillin; Z88.8 Allergy status to other drugs, medicaments and biological substances; I25.5 Ischemic cardiomyopathy; I25.118 Atherosclerotic heart disease of native coronary artery with other forms of angina pectoris; J44.9 Chronic obstructive pulmonary disease, unspecified; F17.200 Nicotine dependence, unspecified, uncomplicated; G89.29 Other chronic pain; F41.9 Anxiety disorder, unspecified; G47.00 Insomnia, unspecified
CPT/HCPCS: 36415; 71045; 80053; 82553; 83880; 84484; 85025; 87081; 93005; 99285

== ENCOUNTER 2019-10-08 14:53 | Inpatient (IN) | payer MEDICARE, MEDICAID ==
[~2019-10-08] VITALS: Ht 157.5 cm; Wt 84.8 kg
[~2019-10-08 14:53] MED LIST changes: +CATAPRES0.3 MG ORAL; +MULTIVITAMINS1 EAC8 ORAL; +NORMODYNE200 MG ORAL; +XANAX0.5 MG ORAL
--- NOTE | 2019-10-08 15:05 | NUR ---
ED Nurse Note: pt walked in to ER from home due to general weakness and nausea. pt aao x2-3 and ambulatory but severe weakness. pt noted SOB with labored breathig. skin dry and intact. pt reported pt gets HD every Tue, Jaylin, Sat and last HD was last Sat. pt reported the general weakness to Dr. Vital and he told pt to come to ER for evaluation. pt has HD access on Lt upper chest. pt is in gown and on threat monitoring analyst.
--- NOTE | 2019-10-08 15:06 | NUR ---
ED Nurse Note: pt tends to refuse all the care and assessment. pt uncooperative.
[2019-10-08 15:10] VITALS: BP 136/74
--- NOTE | 2019-10-08 15:10 | NUR ---
ED Nurse Note: EKG at bedside.
--- NOTE | 2019-10-08 15:11 | NUR ---
ED Nurse Note: pt O2 level at 62% in room air. ERMD made aware and put pt on 4L/min via NC. O2 sat increased to 94%.
--- NOTE | 2019-10-08 15:27 | NUR ---
ED Nurse Note: x-ray at bedside.
--- NOTE | 2019-10-08 15:28 | NUR ---
ED Nurse Note: ERMD made aware of pt refused x-ray.
--- NOTE | 2019-10-08 15:28 | NUR ---
ED Nurse Note: pt refused x-ray due to she cannot lay flat due to back pain and she does not want radiation expose since she has had several x-ray recently in [facility].
--- NOTE | 2019-10-08 15:42 | Emergency Room Report ---
History of Present Illness General Chief Complaint: General Complaint Source: Patient Present Illness HPI 68 yo F presents to ED for evaluation. referred by PMD Dr Vital. patient was recently admitted to [facility] and discharged to SNF. patient states she left that SNF bc it was dirty. states she hasn't had dialysis in 2-3 days. denies chest pain, SOB. states she feels weak, nauseous. denies abd pain. denies leg swelling. no other aggravating or relieving factors. denies any other associated symptoms. Allergies: Coded Allergies: POVIDONE-IODINE (Verified Allergy, Intermediate, Rash, 01/03/17) PENICILLINS (Verified Allergy, Unknown, 01/02/17) Patient History Past Medical History: HTN, renal disease, dialysis Past Surgical History: none Pertinent Family History: none Social History: Denies: smoking, alcohol use, drug use Now: No Immunizations: UTD Reviewed Nursing Documentation: PMH: Agreed; PSxH: Agreed Nursing Documentation-PMH Past Medical History: No History, Except For Hx Cardiac Problems: Yes - angioedema Hx Hypertension: Yes Hx Cancer: No Hx Gastrointestinal Problems: No Hx Dialysis: Yes - MWF Hx Neurological Problems: No Hx Weakness: Yes Review of Systems All Other Systems: negative except mentioned in HPI Physical Exam Vital Signs Date Time Temp Pulse Resp B/P (MAP) Pulse Ox O2 Delivery O2 Flow Rate FiO2 10/08/19 15:07 98.1 68 18 130/76 (94) 92 Nasal Cannula 4.0 Sp02 EP Interpretation: reviewed, normal General Appearance: no apparent distress, alert, GCS 15, non-toxic Head: normocephalic, atraumatic Eyes: bilateral eye normal inspection, bilateral eye PERRL ENT: hearing grossly normal, normal pharynx, no angioedema, normal voice Neck: full range of motion, supple/symm/no masses Respiratory: chest non-tender, lungs clear, normal breath sounds, speaking full sentences Cardiovascular #1: regular rate, rhythm, no edema Cardiovascular #2: 2+ carotid (R), 2+ carotid (L), 2+ radial (R), 2+ radial (L) , 2+ dorsalis pedis (R), 2+ dorsalis pedis (L) Gastrointestinal: normal bowel sounds, non tender, soft, non-distended, no guarding, no rebound Rectal: deferred Genitourinary: normal inspection, no CVA tenderness Musculoskeletal: back normal, normal range of motion, gait/station normal, non- tender Neurologic: alert, motor strength/tone normal, oriented x3, sensory intact, responsive, speech normal Psychiatric: judgement/insight normal, memory normal, mood/affect normal, no suicidal/homicidal ideation Reflexes: 3+ bicep (R), 3+ bicep (L), 3+ tricep (R), 3+ tricep (L), 3+ knee (R) , 3+ knee (L) Lymphatic: no adenopathy Procedures Critical Care Time Critical Care Time i. I feel this is a highly complex case requiring extensive working including EKG/Rhythm strip, Xray/CT/US, Blood/urine lab work, repeat exams while in ED, and administration of strong opiates/narcotics for pain control, admission to hospital or close patient follow up. Total time: 45 min bedside evaluation and treatment excludes procedures (EKG). Reason for critical care: weakness, nausea, ESRD, elevated troponin Possible complications: hypotension, hypertension, TX, shock, arrhythmias, metabolic acidosis, end organ damage, respiratory failure. Interventions: labs, EKG, CXR (refused). discussion with cardiology and nephrology. Course: Patient presenting with weakness and nausea. History of end-stage renal disease. Missed dialysis x2 days. Troponin 1.427. BUN/creatinine elevated, potassium okay. EKG right bundle branch block unchanged. Patient denies chest pain. Discussed with cardiology. Discussed with nephrology. Refused chest x-ray. Consultations: nursing staff, EMS, family Performed by: Dr Murphy Tolerated well condition = critical j. because of unstable vital signs this patient had a condition that could potentially threaten life or limb. I feel this is a critical patient who required my full attention while patient was considered critical. Total Critical Care Time excluding procedures was greater than 45 minutes Medical Decision Making Diagnostic Impression: Primary Impression: End-stage renal disease Additional Impressions: Diastolic CHF, acute on chronic Elevated troponin ER Course Hospital Course 68 yo F presents to ED c/o weakness, nausea. missed dialysis x 2 days Differential diagnoses include: TX/unstable angina, fluid overload, CHF exacerabation, hyperkalemia, uremia Clinical course Patient placed on stretcher. on environmental monitoring specialist. After initial history and physical I ordered labs, EKG, chest x-ray labs reviewed- BUN/Cr elevated. K ok. no leukocytosis, hemoglobin/hematocrit stable. Trop 1.427. BNP elevated EKG - RBBB unchanged. Chest x-ray- refused initially then agreed. shows cardiomegaly. dialysis cathteter in chest. some interstitial congestion. Patient denies chest pain. Initially hypoxic on room air improved with nasal cannula. Discussed with cardiology. Discussed with nephrology. likely troponin leak Case discussed with Dr. Vital and he agreed to accept the patient to his service for further care and support I. I feel this is a highly complex case requiring extensive working including EKG/Rhythm strip, Xray/CT/US, Blood/urine lab work, repeat exams while in ED, and administration of strong opiates/narcotics for pain control, admission to hospital or close patient follow up. Diagnosis - ESRD. CHF acute on chronic. elevated troponin admitted to SDU in critical condition Labs Test 10/08/19 15:40 White Blood Count 5.6 K/UL (4.8-10.8) Red Blood Count 2.87 M/UL (4.20-5.40) Hemoglobin 8.9 G/DL (12.0-16.0) Hematocrit 27.2 % (37.0-47.0) Mean Corpuscular Volume 95 FL (80-99) Mean Corpuscular Hemoglobin 31.1 PG (27.0-31.0) Mean Corpuscular Hemoglobin Concent 32.7 G/DL (32.0-36.0) Red Cell Distribution Width 14.4 % (11.6-14.8) Platelet Count 174 K/UL (150-450) Mean Platelet Volume 7.0 FL (6.5-10.1) Neutrophils (%) (Auto) 74.3 % (45.0-75.0) Lymphocytes (%) (Auto) 16.0 % (20.0-45.0) Monocytes (%) (Auto) 8.8 % (1.0-10.0) Eosinophils (%) (Auto) 0.0 % (0.0-3.0) Basophils (%) (Auto) 0.9 % (0.0-2.0) Sodium Level 143 MMOL/L (136-145) Potassium Level 5.1 MMOL/L (3.5-5.1) Chloride Level 102 MMOL/L (98-107) Carbon Dioxide Level 27 MMOL/L (21-32) Anion Gap 15 mmol/L (5-15) Blood Urea Nitrogen 93 mg/dL (7-18) Creatinine 11.5 MG/DL (0.55-1.30) Estimat Glomerular Filtration Rate 4.0 mL/min (>60) Glucose Level 145 MG/DL (74-106) Calcium Level 7.2 MG/DL (8.5-10.1) Total Bilirubin 0.4 MG/DL (0.2-1.0) Aspartate Amino Transf (AST/SGOT) 28 U/L (15-37) Alanine Aminotransferase (ALT/SGPT) 24 U/L (12-78) Alkaline Phosphatase 94 U/L (46-116) Troponin I 1.427 ng/mL (0.000-0.056) Pro-B-Type Natriuretic Peptide > 72477 pg/mL (0-125) Total Protein 7.7 G/DL (6.4-8.2) Albumin 3.0 G/DL (3.4-5.0) Globulin 4.7 g/dL Albumin/Globulin Ratio 0.6 (1.0-2.7) EKG Diagnostic Results Rate: normal Rhythm: NSR ST Segments: other - RBBB Rhythm Strip Diag. Results EP Interpretation: yes Rhythm: NSR, no PVC's, no ectopy Chest X-Ray Diagnostic Results Chest X-Ray Diagnostic Results : Chest X-Ray Ordered: Yes # of Views/Limited/Complete: 1 View Indication: Shortness of Breath EP Interpretation: Yes Interpretation: no pneumothorax, other - cardiomegaly. dialysis catheter. pleural congestion noted Last Vital Signs Date Time Temp Pulse Resp B/P (MAP) Pulse Ox O2 Delivery O2 Flow Rate FiO2 10/08/19 15:07 98.1 68 18 130/76 (94) 92 Nasal Cannula 4.0 Status: improved Disposition: ADMITTED INPATIENT Condition: Critical Reji Murphy MD Oct 08, 2019 15:42
[2019-10-08 15:59] LABS: BASOPHILS % (AUTO) 0.9 % (0.0-2.0); HEMATOCRIT 27.2 % (37.0-47.0); HEMOGLOBIN 8.9 G/DL (12.0-16.0); MEAN CORPUSCULAR VOLUME 95 FL (80-99); MONOCYTES % (AUTO) 8.8 % (1.0-10.0); NEUTROPHILS % (AUTO) 74.3 % (45.0-75.0); PLATELET COUNT 174 K/UL (150-450); RED BLOOD COUNT 2.87 M/UL (4.20-5.40); RED CELL DISTRIBUTION WIDTH 14.4 % (11.6-14.8); WHITE BLOOD COUNT 5.6 K/UL (4.8-10.8)
[2019-10-08 16:16] LABS: ANION GAP 15 mmol/L (5-15); BLOOD UREA NITROGEN 93 mg/dL (7-18); CALCIUM 7.2 MG/DL (8.5-10.1); CARBON DIOXIDE 27 MMOL/L (21-32); CHLORIDE 102 MMOL/L (98-107); CREATININE 11.5 MG/DL (0.55-1.30); POTASSIUM 5.1 MMOL/L (3.5-5.1); SODIUM 143 MMOL/L (136-145)
[2019-10-08 16:26] LABS: ALANINE AMINOTRANSFERASE 24 U/L (12-78); ALBUMIN/GLOBULIN RATIO 0.6 (1.0-2.7); ALKALINE PHOSPHATASE 94 U/L (46-116); ASPARTATE AMINO TRANSFERASE 28 U/L (15-37); BILIRUBIN,TOTAL 0.4 MG/DL (0.2-1.0)
--- NOTE | 2019-10-08 16:30 | NUR ---
ED Nurse Note: Troponin result 1.427 reported to ERMD.
--- NOTE | 2019-10-08 17:06 | NUR ---
ED Nurse Note: pt refused VRE swab and coccyx area skin check as stated "I am a still woman. don't even think about it." pt refused female nurse to perfome too.
[2019-10-08 17:10] VITALS: BP 130/75
[2019-10-08] MEDS ORDERED: ALPRAZolam 0.5mg tab ORAL ONE (17:15)
--- NOTE | 2019-10-08 18:28 | NUR ---
ED Nurse Note: pt agreed with x-ray. x-ray at bedside.
--- NOTE | 2019-10-08 18:42 | NUR ---
ED Nurse Note: REPORT GIVEN TO DANA DEVI.
--- NOTE | 2019-10-08 18:55 | NUR ---
NURSE NOTES: Report received from DANA Suarez. Pt admitted from ER d/t SOB, weakness, O2Sat 60's. Pt A&Ox4, can be difficult at times, refusing some medical tx. Pt is on 3L NC, O2Sat 94%. Pt noted to have an IV in the RT AC #20g. No distress noted. Bed locked and in lowest position with call light within reach. Will resume plan of care.
--- NOTE | 2019-10-08 19:05 | NUR ---
ED Nurse Note: pt left unit with 2 RN in stable condition.
--- NOTE | 2019-10-08 19:30 | NUR ---
HAND-OFF: Report given to DANA Botello.
--- NOTE | 2019-10-08 20:00 | NUR ---
NURSE NOTES: Received patient from Isha CORTEZ. Patient is awake and oriented, slightly lethargic but able to make needs known. Patient is on NC at 2L with SpO2 of 95%. Left upper chest Román cath for HD access, dressing is dry and intact. R AC 20G noted. NAD at this time, will continue to monitor.
--- NOTE | 2019-10-08 20:41 | NUR ---
NURSE NOTES: Left message for Dr. Vital for admission orders, awaiting for call back.
--- NOTE | 2019-10-08 20:45 | NUR ---
NURSE NOTES: Dr. Le called back with admission orders.
[2019-10-08] MEDS: Heparin 5000 units/ml inj SUBQ SCH (21:00)
--- NOTE | 2019-10-08 21:30 | NUR ---
NURSE NOTES: Patient refusing 5000units heparin SQ.
--- NOTE | 2019-10-08 21:31 | NUR ---
NURSE NOTES: Called [facility] regarding urgent HD for tonight. [facility] said they sent out a message for the collection development librarian dialysis nurse.
--- NOTE | 2019-10-08 21:45 | NUR ---
NURSE NOTES: Lopressor on hold for now patient is about to get dialysis.
--- NOTE | 2019-10-08 21:59 | NUR ---
NURSE NOTES: HD nurse at bedside setting up equipment and beginning HD.
--- NOTE | 2019-10-08 23:40 | NUR ---
NURSE NOTES: Pt complains of insomnia. Dr Vital contacted for PRN medication at pt request. Will await further orders. Will implement relaxation techniques. Will continue to monitor.
[2019-10-08] MEDS: Metoprolol Tartrate 50mg tab ORAL SCH (23:55)
[2019-10-09] MEDS: Nitroglycerin 2% oint pkt TOPIC SCH ×5 (00:05→23:43)
--- NOTE | 2019-10-09 00:06 | NUR ---
NURSE NOTES: Dialysis is complete, 3000ml removed. Patient tolerated well.
--- NOTE | 2019-10-09 02:00 | NUR ---
NURSE NOTES: Patient remains stable at this time. No acute distress. Vitals have remained stable and no SOB at this time. Patient denies chest pain.
--- NOTE | 2019-10-09 04:45 | NUR ---
NURSE NOTES: Patient awake and oriented. Had 1 normal BM. Remains hemodynamically stable at this time. Patient denies chest pain or shortness of breath.
[2019-10-09 05:19] LABS: BASOPHILS % (AUTO) 0.3 % (0.0-2.0); HEMOGLOBIN 9.6 G/DL (12.0-16.0); LYMPHOCYTES % (AUTO) 14.1 % (20.0-45.0); MEAN CORPUSCULAR VOLUME 96 FL (80-99); MONOCYTES % (AUTO) 9.2 % (1.0-10.0); NEUTROPHILS % (AUTO) 76.4 % (45.0-75.0); PLATELET COUNT 176 K/UL (150-450); RED BLOOD COUNT 3.03 M/UL (4.20-5.40); RED CELL DISTRIBUTION WIDTH 14.2 % (11.6-14.8); WHITE BLOOD COUNT 5.4 K/UL (4.8-10.8)
[2019-10-09 06:00] LABS: ALANINE AMINOTRANSFERASE 21 U/L (12-78); ALBUMIN 3.1 G/DL (3.4-5.0); ALBUMIN/GLOBULIN RATIO 0.6 (1.0-2.7); ALKALINE PHOSPHATASE 97 U/L (46-116); ANION GAP 11 mmol/L (5-15); ASPARTATE AMINO TRANSFERASE 26 U/L (15-37); BILIRUBIN,TOTAL 0.5 MG/DL (0.2-1.0); BLOOD UREA NITROGEN 59 mg/dL (7-18); CALCIUM 7.8 MG/DL (8.5-10.1); CARBON DIOXIDE 27 MMOL/L (21-32); CHLORIDE 98 MMOL/L (98-107); CHOLESTEROL 102 MG/DL (< 200); CREATININE 8.9 MG/DL (0.55-1.30); HDL CHOLESTEROL 45 MG/DL (40-60); POTASSIUM 4.5 MMOL/L (3.5-5.1); SODIUM 136 MMOL/L (136-145); TRIGLYCERIDES 52 MG/DL (30-150)
--- NOTE | 2019-10-09 06:43 | NUR ---
NURSE NOTES: Patient is asleep at this time but easily arousable. Blood pressure and HR remained stable throughout the shift. Patient able to use bed side cammode with assistance. Throughout the shift patient denied any chest pain or SOB. Patient however is slightly lethargic but not as much prior from being dialyzed. Right after being dialyzed patient was more proactive. No acute distress at this time. Will continue to monitor
--- NOTE | 2019-10-09 07:27 | NUR ---
NURSE NOTES: Received bedside report from Camden CORTEZ. Pt. up sitting at the edge of the bed. No sign of distress. On O2 at 2LPM via NC. Denies pain at present. IV site at right AC #20g. in placed S.L. Bed in low position, locked, bed alarm on. Call light within reach. Will cont. to monitor.
--- NOTE | 2019-10-09 07:27 | NUR ---
HAND-OFF: Report given to Reyes CORTEZ
[2019-10-09] MEDS: Aspirin Baby 81mg ORAL SCH (09:00)
[2019-10-09] MEDS: Metoprolol Tartrate 50mg tab ORAL SCH ×2 (09:00→20:16)
[2019-10-09] MEDS: HydrALAZINE 50mg tab ORAL SCH ×3 (09:00→18:39)
[2019-10-09] MEDS: Heparin 5000 units/ml inj SUBQ SCH ×2 (09:00→20:26)
--- NOTE | 2019-10-09 09:39 | NUR ---
NURSE NOTES: Pt. refused 0800 vitals signs and morning medications per pt. all she wants is dialysis. Dr. Colunga ordered HD tomorrow. Dr. Vital aware pt. constant refusals of medications.
--- NOTE | 2019-10-09 11:00 | NUR ---
NURSE NOTES: Gave pt. sponge bath again. Pt. constantly calling for cheese, turkey burger, toast etc.
[2019-10-09 12:00] VITALS: BP 181/90
[2019-10-09] MEDS: guaiFENesin w/Codeine 5ml Liq ud ORAL PRN ×2 (12:12→18:39)
--- NOTE | 2019-10-09 15:11 | Diagnostic Imaging Report ---
Indication: Shortness of breath Technique: One view of the chest Comparison: For 06/29/2018 Findings: Left chest tunneled dialysis catheter is again noted. There is bilateral interstitial congestion. There may be some associated hazy airspace edema as well. The heart is borderline enlarged. There may be small pleural effusions bilaterally Impression: Interstitial congestion and possible mild airspace edema
--- NOTE | 2019-10-09 15:30 | NUR ---
CASE MANAGEMENT:REVIEW 68 YR OLD FEMALE WALKED IN TO ER CC; SENT BY PCP (DR CAGLE) FOR SOB AND SEVERE WEAKNESS PMH: ESRD ON HD SI:ELEVATED TROPONIN. AC/CHR CHF 98.1 68 18 130/76 62% ON RA H/H-8.9/27.2 BUN+93 CR+11.5 TROPONIN(+) 1.427 BNP>76172 IS: PLACED ON 4L/NC IV ZOFRAN CHEST XRAY : TO STEP DOWN UNIT IS: ASA PO QD HYDRALAZINE PO TID NITRO BID 1" Q6HRS HEPARIN SQ Q12 LOPRESSOR PO Q12
[2019-10-09 16:00] VITALS: BP 186/95
--- NOTE | 2019-10-09 16:43 | NUR ---
CARDIOLOGY Attempted to do patients 2D-echo 3 times on 10/09/2019. Patiet refused and nurse is aware.
[2019-10-09 18:00] VITALS: BP 172/83
--- NOTE | 2019-10-09 18:27 | NUR ---
NURSE NOTES: Noted IV line got pulled out. Told pt. I will re-insert new IV line. Pt. refused and told RN "I don't need IV line let my doctor knows that". Notify Dr. Vital and told RN to document that pt. is refusing to have new IV line.
--- NOTE | 2019-10-09 19:48 | NUR ---
NURSE NOTES: Received bedside report from Peggy CORTEZ. Pt. up sitting at the edge of the bed. No sign of distress. On O2 at 2LPM via NC. Denies pain at present. Román catheter noted, pt currently refusing placement of IV catheter. Bed in low position, locked, bed alarm on. Call light within reach. Will cont. to monitor.
--- NOTE | 2019-10-09 20:01 | NUR ---
HAND-OFF: Report given to Maria R CORTEZ. Pt. remain stable.
--- NOTE | 2019-10-09 20:20 | NUR ---
NURSE NOTES: BP noted to be elevated. Catapress administered per MD order. No adverse effects noted. Will continue to monitor.
[2019-10-09] MEDS: cloNIDine 0.2mg Tab ORAL PRN (20:25)
[2019-10-09] MEDS: ALPRAZolam 0.5mg tab ORAL PRN (20:25)
--- NOTE | 2019-10-09 20:25 | NUR ---
NURSE NOTES: Pt complains of anxiety and requests PRN Xanax to help. Medication administered per pt request. No adverse effects noted. Will continue to monitor.
[2019-10-10] VITALS: BP 167/87
--- NOTE | 2019-10-10 00:22 | NUR ---
NURSE NOTES: Orders received from Dr Zahraa Shaffer 30mg QHS PRN Insomnia. Will carry out orders.
--- NOTE | 2019-10-10 01:00 | NUR ---
NURSE NOTES: Pt assisted to bedside commode and back to bed. Pt then provided with oral care and bed bath. Pt tolerated care well. Pt continues resting in bed, bed is in lowest position with safety wheels engaged, bed alarm activated, call light within reach and side rails up x2. Pt reminded to use call light and not to ambulate unassisted due to weak gait. Will continue to monitor.
[2019-10-10] MEDS: guaiFENesin w/Codeine 5ml Liq ud ORAL PRN ×3 (02:03→23:55)
--- NOTE | 2019-10-10 03:15 | History and Physical Report ---
DATE OF ADMISSION: 10/08/2019 CHIEF COMPLAINT: CHF exacerbation, possible acute OH. HISTORY OF PRESENT ILLNESS: The patient is a 68-year-old female well known to me. She has a history of end-stage renal disease, hypertension, and congestive heart failure. She has a history of diskitis and presented with complaints of shortness of breath and uncontrolled hypertension. She has a history of medication noncompliance as well as noncompliance with hemodialysis. On evaluation in the emergency room, the patient was noted to have an elevated troponin. She was hypertensive and felt to be in volume overload. She is now admitted for further evaluation and care. PAST MEDICAL HISTORY: As above. PAST SURGICAL HISTORY: Includes history of PermCath placement. CURRENT MEDICATIONS: Reconciled and reviewed. ALLERGIES: None. FAMILY HISTORY: None. SOCIAL HISTORY: There is no known history of tobacco, ethanol, or drugs. REVIEW OF SYSTEMS: GENERAL: No fevers or chills. HEENT: No headaches or visual changes. CARDIOPULMONARY: No chest pain. Positive shortness of breath. GASTROINTESTINAL: No nausea or vomiting. GENITOURINARY: No urgency or frequency. MUSCULOSKELETAL: No joint pain or swelling. NEUROLOGIC: No evidence of seizures. PHYSICAL EXAMINATION: VITAL SIGNS: Temperature 98 degrees, blood pressure 180/76, pulse 80, and respirations 20. GENERAL: The patient is well developed, in no apparent distress. HEART: Regular rate and rhythm. LUNGS: Significant for scattered rhonchi. ABDOMEN: Soft, nontender, and nondistended. EXTREMITIES: Without clubbing cyanosis, or edema. LABORATORY AND DIAGNOSTIC DATA: EKG showed right bundle-branch block. White count was 5, hemoglobin 9, hematocrit 27, and platelet count of 174,000. Troponin was 1.427. Natriuretic peptide level was greater than 3500. ASSESSMENT: This is a pleasant female admitted with complaints of shortness of breath, possible acute myocardial infarction, congestive heart failure exacerbation, and uncontrolled hypertension. PLAN: 1. Hemodialysis with ultrafiltration. 2. Titrate antihypertensive regimen. 3. Supplemental oxygen. 4. Respiratory treatments. 5. Cardiology consult. Govind Vital M.D. DR: RODNEY JOB#: [id number] CC:
[2019-10-10 04:00] VITALS: BP 177/89
[2019-10-10] MEDS: ALPRAZolam 0.5mg tab ORAL PRN ×4 (04:28→22:32)
[2019-10-10] MEDS: cloNIDine 0.2mg Tab ORAL PRN (04:28)
--- NOTE | 2019-10-10 05:22 | NUR ---
NURSE NOTES: Called to confirm ETA for Dialysis, spoke with Blake. [facility] to call back with approximate time.
[2019-10-10] MEDS: Nitroglycerin 2% oint pkt TOPIC SCH ×4 (06:13→23:46)
--- NOTE | 2019-10-10 07:28 | NUR ---
HAND-OFF: Report given to DANA Fitch. Pt remains stable at this time.
--- NOTE | 2019-10-10 07:35 | NUR ---
NURSE NOTES: received patient report from ana maria aiken. patient is on bed awake. currently on HD. not in acute distress. no arrythmias reported during the night. will follow plan of care.
[2019-10-10 08:00] VITALS: BP 164/91
[2019-10-10] MEDS: HydrALAZINE 50mg tab ORAL SCH ×4 (08:48→23:46)
[2019-10-10] MEDS: Metoprolol Tartrate 50mg tab ORAL SCH ×2 (08:49→22:22)
[2019-10-10] MEDS: Heparin 5000 units/ml inj SUBQ SCH ×2 (08:49→22:21)
[2019-10-10] MEDS: Aspirin Baby 81mg ORAL SCH (08:50)
--- NOTE | 2019-10-10 10:53 | General Progress Note ---
Assessment/Plan Problem List: (1) Hypertensive crisis ICD Codes: I16.9 - Hypertensive crisis, unspecified SNOMED: 290409468 (2) Fluid overload (3) End-stage renal disease ICD Codes: N18.6 - End-stage renal disease SNOMED: 91268262 (4) Elevated troponin ICD Codes: R79.89 - Other specified abnormal findings of blood chemistry SNOMED: 073237739, 221473208, 253337071 (5) ESRD (end stage renal disease) ICD Codes: N18.6 - End stage renal disease SNOMED: 55988153 Status: stable Assessment/Plan: HD with UF(tech to come back later today/tonite) refusing iv- compliance stressed bp rx anxiolytics cards eval pending Subjective ROS Limited/Unobtainable: No Constitutional: Reports: malaise, weakness HEENT: Reports: no symptoms Cardiovascular: Reports: no symptoms Respiratory: Reports: cough, shortness of breath Gastrointestinal/Abdominal: Reports: no symptoms Genitourinary: Reports: no symptoms Neurologic/Psychiatric: Reports: no symptoms Endocrine: Reports: no symptoms Hematologic/Lymphatic: Reports: no symptoms Allergies: Coded Allergies: POVIDONE-IODINE (Verified Allergy, Intermediate, Rash, 01/03/17) PENICILLINS (Verified Allergy, Unknown, 01/02/17) All Systems: reviewed and negative except above Subjective no events. w/o complaints. still with sob. refusing HD this morning because she states neon technician was "rude." Objective Last 24 Hour Vital Signs Date Time Temp Pulse Resp B/P (MAP) Pulse Ox O2 Delivery O2 Flow Rate FiO2 10/10/19 08:49 59 164/91 10/10/19 08:48 164/91 10/10/19 08:00 Nasal Cannula 2.0 10/10/19 08:00 97.3 59 20 164/91 (115) 97 10/10/19 07:49 59 10/10/19 06:13 168/89 10/10/19 04:28 177/89 10/10/19 04:00 98.1 66 20 177/89 (118) 97 10/10/19 04:00 Nasal Cannula 2.0 10/10/19 03:45 79 10/10/19 00:00 98.0 82 20 167/87 (113) 97 1/1/20 00:00 Nasal Cannula 2.0 10/09/19 23:57 63 10/09/19 23:43 144/84 10/09/19 20:25 172/83 10/09/19 20:16 78 159/83 10/09/19 20:00 Nasal Cannula 2.0 10/09/19 19:23 78 10/09/19 18:39 186/95 10/09/19 18:39 186/95 10/09/19 18:00 98.1 80 22 172/83 (112) 98 10/09/19 16:00 97.2 76 21 186/95 (125) 96 10/09/19 16:00 Nasal Cannula 2.0 10/09/19 15:36 68 10/09/19 12:12 181/90 10/09/19 12:12 181/90 10/09/19 12:04 91 10/09/19 12:00 Nasal Cannula 2.0 10/09/19 12:00 97.5 92 22 181/90 (120) 94 Intake and Output 10/09/19 10/10/19 19:00 07:00 Intake Total 420 ml 340 ml Balance 420 ml 340 ml Intake Oral 420 ml 340 ml # Bowel Movements 2 Height (Feet): 5 Height (Inches): 2.00 Weight (Pounds): 190 General Appearance: WD/WN, alert Neck: supple Cardiovascular: regular rhythm Respiratory/Chest: rhonchi - bilaterally Abdomen: normal bowel sounds, non tender, soft, no organomegaly Edema: no edema noted Arm (L), no edema noted Arm (R), no edema noted Leg (L), no edema noted Leg (R), no edema noted Pedal (L), no edema noted Pedal (R), no edema noted Generalized Neurologic: dermatology specialist II-XII grossly normal, no motor/sensory deficits, alert, oriented x 3 Govind Vital MD Oct 10, 2019 10:53
[2019-10-10 11:26] VITALS: BP 155/94
--- NOTE | 2019-10-10 13:13 | Nephrology Progress Note ---
Assessment/Plan Status: stable Assessment/Plan: A/P 1) ESRD- HD today ordered - [facility] MWF as out pt 2) SOB- resolviing with UF 3) HTN- adjust meds prn 4) Anemia of CKF- EPO if Hgb <10 Subjective Date patient seen: Oct 10, 2019 Time patient seen: 13:11 ROS Limited/Unobtainable: No Allergies: Coded Allergies: POVIDONE-IODINE (Verified Allergy, Intermediate, Rash, 01/03/17) PENICILLINS (Verified Allergy, Unknown, 01/02/17) Subjective Patient calmer. Breathing improved Objective Last 24 Hour Vital Signs Date Time Temp Pulse Resp B/P (MAP) Pulse Ox O2 Delivery O2 Flow Rate FiO2 10/10/19 12:00 Nasal Cannula 2.0 10/10/19 11:26 97.9 59 21 155/94 (114) 97 10/10/19 08:49 59 164/91 10/10/19 08:48 164/91 10/10/19 08:00 Nasal Cannula 2.0 10/10/19 08:00 97.3 59 20 164/91 (115) 97 10/10/19 07:49 59 10/10/19 06:13 168/89 10/10/19 04:28 177/89 10/10/19 04:00 98.1 66 20 177/89 (118) 97 10/10/19 04:00 Nasal Cannula 2.0 10/10/19 03:45 79 10/10/19 00:00 98.0 82 20 167/87 (113) 97 10/10/19 00:00 Nasal Cannula 2.0 10/09/19 23:57 63 10/09/19 23:43 144/84 10/09/19 20:25 172/83 10/09/19 20:16 78 159/83 10/09/19 20:00 Nasal Cannula 2.0 10/09/19 19:23 78 10/09/19 18:39 186/95 10/09/19 18:39 186/95 10/09/19 18:00 98.1 80 22 172/83 (112) 98 10/09/19 16:00 97.2 76 21 186/95 (125) 96 10/09/19 16:00 Nasal Cannula 2.0 10/09/19 15:36 68 Intake and Output 10/09/19 10/10/19 19:00 07:00 Intake Total 420 ml 340 ml Balance 420 ml 340 ml Intake Oral 420 ml 340 ml # Bowel Movements 2 Height (Feet): 5 Height (Inches): 2.00 Weight (Pounds): 190 General Appearance: no apparent distress, alert EENT: normal ENT inspection Neck: normal alignment, supple Cardiovascular: normal rate, regular rhythm Respiratory/Chest: lungs clear, normal breath sounds Abdomen: non tender, soft Edema: no edema noted Arm (L), no edema noted Arm (R), no edema noted Leg (L), no edema noted Leg (R), no edema noted Pedal (L), no edema noted Pedal (R), no edema noted Generalized Chong Akins MD Oct 10, 2019 13:13
[2019-10-10 16:00] VITALS: BP 168/84
--- NOTE | 2019-10-10 19:37 | NUR ---
NURSE NOTES: Received report from Blayne Pickard RN. Pt in bed, stable, denies pain or distress. Will continue to monitor closely and plan of care.
--- NOTE | 2019-10-10 19:38 | NUR ---
HAND-OFF: Report given to natacha aiken.
[2019-10-10 20:00] VITALS: BP 197/103
[2019-10-10] MEDS ORDERED: Epoetin Alfa-EPBX(ESRD on dialysis)3000 units/ml vial SUBQ SCH (21:00)
[2019-10-10] MEDS ORDERED: Epoetin Alfa-EPBX(ESRD on dialysis)2000 units/ml vial SUBQ SCH (21:00)
[2019-10-11] VITALS: BP 185/95
--- NOTE | 2019-10-11 01:00 | NUR ---
NURSE NOTES: Called [facility] for left message, awaiting call back.
[2019-10-11] MEDS: cloNIDine 0.2mg Tab ORAL PRN (01:51)
--- NOTE | 2019-10-11 03:30 | NUR ---
NURSE NOTES: Called [facility] for left message, awaiting call back.
[2019-10-11 04:00] VITALS: BP 183/97
--- NOTE | 2019-10-11 06:00 | NUR ---
NURSE NOTES: Epoetin held for for SBP<170. Pt treated per protocol and MD will be notified. At 0600, BP 161/96, Epoetin given as ordered. Charge nurse made aware.
[2019-10-11] MEDS: Nitroglycerin 2% oint pkt TOPIC SCH ×3 (07:05→16:52)
--- NOTE | 2019-10-11 07:15 | NUR ---
NURSE NOTES: RECEIVED BED SIDE REPORT FROM MARIE CORTEZ STAFF OF GRIDDLE ATTENDANT. RECEIVED PT SITTING UP IN BIG CHAIR.PT AWAKE AND ALERT SEEMS VERY UPSET & AGITATED " STATING NO DIALYSIS NURSE CAME TO DO MY DIALYSIS ".DR ZHAO CAME TO SEE THE PT AND MADE AWARE AND NOTIFIED REGARDING NO DIALYSIS WAS PERFORMED. LAST NIGHT DR ZHAO CALLED [employer] AND LEFT A MESSAGE ALSO SUDHA CORTEZ IN CHARGE CALLED TO [email or web address]. PT HAS STEFANIE CATH ON LT CHEST AREA, DSG DRY AND CLEAN.FULL BODY ASSESSMENT DONE. WILL CONT TO MONITOR.
--- NOTE | 2019-10-11 07:48 | NUR ---
HAND-OFF: Report given to Moisés Zamora RN. Pt in stable condition.
[2019-10-11 08:00] VITALS: BP 183/105
--- NOTE | 2019-10-11 08:16 | Nephrology Progress Note ---
Assessment/Plan Status: stable Assessment/Plan: A/P 1) ESRD- HD was not completed yesterday. [facility] called multiple times and again this am as patient still awaiting HD treatment - [facility] at noon as out pt 2) SOB- awaiting Hd treatment from yesterday 3) HTN- adjust meds prn. Awaiting BP meds this am 4) Anemia of CKF- EPO if Hgb <10 Subjective Date patient seen: Oct 11, 2019 Time patient seen: 08:14 ROS Limited/Unobtainable: No Allergies: Coded Allergies: POVIDONE-IODINE (Verified Allergy, Intermediate, Rash, 01/03/17) PENICILLINS (Verified Allergy, Unknown, 01/02/17) Subjective Patient awaiting HD treatment Objective Last 24 Hour Vital Signs Date Time Temp Pulse Resp B/P (MAP) Pulse Ox O2 Delivery O2 Flow Rate FiO2 10/11/19 08:00 97.6 71 18 183/105 (131) 92 10/11/19 08:00 Nasal Cannula 2.0 10/11/19 07:05 161/96 10/11/19 04:57 59 10/11/19 04:00 98.4 59 20 183/97 (125) 97 10/11/19 04:00 Nasal Cannula 2.0 10/11/19 01:51 186/106 10/11/19 00:00 98.6 63 20 185/95 (125) 97 10/11/19 00:00 Nasal Cannula 2.0 10/10/19 23:46 185/95 10/10/19 23:46 185/95 10/10/19 22:22 75 197/103 10/10/19 20:00 98.6 75 20 197/103 (134) 97 10/10/19 20:00 Nasal Cannula 2.0 10/10/19 20:00 62 10/10/19 17:41 168/84 10/10/19 17:41 168/84 10/10/19 16:00 97.2 62 20 168/84 (112) 97 10/10/19 16:00 58 10/10/19 16:00 Nasal Cannula 2.0 10/10/19 12:00 Nasal Cannula 2.0 10/10/19 11:51 56 10/10/19 11:26 97.9 59 21 155/94 (114) 97 10/10/19 08:49 59 164/91 10/10/19 08:48 164/91 Intake and Output 10/10/19 10/11/19 19:00 07:00 Intake Total 690 ml 516 ml Balance 690 ml 516 ml Intake Oral 690 ml 516 ml # Voids 2 # Bowel Movements 4 3 Height (Feet): 5 Height (Inches): 2.00 Weight (Pounds): 187 General Appearance: mild distress EENT: normal ENT inspection Neck: normal alignment, supple Cardiovascular: normal rate, regular rhythm Respiratory/Chest: lungs clear, normal breath sounds Abdomen: non tender, soft Edema: no edema noted Arm (L), no edema noted Arm (R), no edema noted Leg (L), no edema noted Leg (R), no edema noted Pedal (L), no edema noted Pedal (R), no edema noted Generalized Chong Akins MD Oct 11, 2019 08:16
[2019-10-11] MEDS: HydrALAZINE 50mg tab ORAL SCH ×3 (08:20→16:47)
[2019-10-11] MEDS: Aspirin Baby 81mg ORAL SCH (08:20)
[2019-10-11] MEDS: Metoprolol Tartrate 50mg tab ORAL SCH (08:20)
[2019-10-11] MEDS: Heparin 5000 units/ml inj SUBQ SCH (08:23)
[2019-10-11 12:00] VITALS: BP 160/81
--- NOTE | 2019-10-11 12:08 | General Progress Note ---
Assessment/Plan Problem List: (1) Hypertensive crisis ICD Codes: I16.9 - Hypertensive crisis, unspecified SNOMED: 303067382 (2) Fluid overload (3) End-stage renal disease ICD Codes: N18.6 - End-stage renal disease SNOMED: 30225828 (4) Elevated troponin ICD Codes: R79.89 - Other specified abnormal findings of blood chemistry SNOMED: 959023082, 919227099, 182472298 (5) ESRD (end stage renal disease) ICD Codes: N18.6 - End stage renal disease SNOMED: 10223046 Status: stable, progressing Assessment/Plan: HD with [facility](tech to come back later today/tonite) refusing iv- compliance stressed bp rx anxiolytics cards eval pending Subjective ROS Limited/Unobtainable: No Constitutional: Reports: malaise, weakness HEENT: Reports: no symptoms Cardiovascular: Reports: no symptoms Respiratory: Reports: cough, shortness of breath Gastrointestinal/Abdominal: Reports: no symptoms Genitourinary: Reports: no symptoms Neurologic/Psychiatric: Reports: no symptoms Endocrine: Reports: no symptoms Hematologic/Lymphatic: Reports: anemia Allergies: Coded Allergies: POVIDONE-IODINE (Verified Allergy, Intermediate, Rash, 01/03/17) PENICILLINS (Verified Allergy, Unknown, 01/02/17) All Systems: reviewed and negative except above Subjective no complaints. no fever or chills. +sob. did not HD yesterday. no cp Objective Last 24 Hour Vital Signs Date Time Temp Pulse Resp B/P (MAP) Pulse Ox O2 Delivery O2 Flow Rate FiO2 10/11/19 08:20 183/105 10/11/19 08:20 71 183/105 10/11/19 08:00 97.6 71 18 183/105 (131) 92 10/11/19 08:00 Nasal Cannula 2.0 10/11/19 08:00 63 10/11/19 07:05 161/96 10/11/19 04:57 59 10/11/19 04:00 98.4 59 20 183/97 (125) 97 10/11/19 04:00 Nasal Cannula 2.0 10/11/19 01:51 186/106 10/11/19 00:00 98.6 63 20 185/95 (125) 97 10/11/19 00:00 Nasal Cannula 2.0 10/10/19 23:46 185/95 10/10/19 23:46 185/95 10/10/19 22:22 75 197/103 10/10/19 20:00 98.6 75 20 197/103 (134) 97 10/10/19 20:00 Nasal Cannula 2.0 10/10/19 20:00 62 10/10/19 17:41 168/84 10/10/19 17:41 168/84 10/10/19 16:00 97.2 62 20 168/84 (112) 97 10/10/19 16:00 58 10/10/19 16:00 Nasal Cannula 2.0 Intake and Output 10/10/19 10/11/19 19:00 07:00 Intake Total 690 ml 516 ml Balance 690 ml 516 ml Intake Oral 690 ml 516 ml # Voids 2 # Bowel Movements 4 3 Height (Feet): 5 Height (Inches): 2.00 Weight (Pounds): 187 General Appearance: WD/WN, alert Neck: supple Cardiovascular: regular rhythm Respiratory/Chest: lungs clear, normal breath sounds Abdomen: normal bowel sounds, non tender, soft, no organomegaly Edema: no edema noted Arm (L), no edema noted Arm (R), no edema noted Leg (L), no edema noted Leg (R), no edema noted Pedal (L), no edema noted Pedal (R), no edema noted Generalized Neurologic: alert, oriented x 3, responsive Govind Vital MD Oct 11, 2019 12:08
--- NOTE | 2019-10-11 12:46 | NUR ---
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 97.8 HR 62 RR 21 B/P 183/105 2L NC O2 SAT @ 98% IS: HYDRALAZINE PO HEPARIN SUBC ASA PO HD STEP DOWN STATUS
--- NOTE | 2019-10-11 13:00 | NUR ---
NURSE NOTES: PT RECEIVING HEMODIALYSIS TOLERATING WELL PROCEDURE.HEMODIALYSIS IS BEEN DONE BY DIEGO CORTEZ FROM [facility]. WILL CONT TO MONITOR.
--- NOTE | 2019-10-11 14:30 | NUR ---
NURSE NOTES: H.D COMPLETED, 3 LITERS OUT PUT.PT TOLERATED WELL THE PROCEDURE,REPORT RECEIVED FROM CASTRO CORTEZ.
[2019-10-11] MEDS: ALPRAZolam 0.5mg tab ORAL PRN (15:56)
[2019-10-11 16:00] VITALS: BP 199/99
--- NOTE | 2019-10-11 16:45 | NUR ---
NURSE NOTES: PLACED A TELEPHONE CALL TO DR CAGLE AND MADE AWARE AND NOTIFIED REGARDING PT DEMANDING TO SIGH AMA FORM AND PT WITH HIGH B/P 180/86 AFTER PT RECEIVED H.D AND PT REFUSED TO GET RE-CHECK THE B/P. M.D STATED IS OK ,LET THE PT SIGH AMA. WILL CONT TO MONITOR.
[2019-10-11 16:52] VITALS: BP 199/109
--- NOTE | 2019-10-11 17:30 | NUR ---
NURSE NOTES: PT INSTRUCTED REGARDING THE IMPORTANCE TO KEEP B/P AT NORMAL RANGE TO PREVENT STROKE .PT STATED " I KNOW ,BUT I NEED TO HOME AND TO PAID MY RENT. I WILL COME BACK TOMORROW TO THE HOSPITAL IF NOT FEELING WELL". SUDHA RN IN CHARGE SPOKE WITH PT TO STAY IN THE HOSPITAL.PT NON-COMPLIANT WITH INSTRUCTIONS.PT SIGHED AMA FORM. PT CALLED A TAXI TO GO HOME. PT AWAITING FOR TAXI .WILL CONT TO MONITOR.
--- NOTE | 2019-10-11 18:00 | NUR ---
NURSE NOTES: PT WHEELED TO DISCHARGE AREA.PT LEFT THE HOSPITAL ON STABLE CONDITIONS VIA TAXI.
--- NOTE | 2019-10-12 10:17 | Discharge Summary ---
Discharge Summary Discharge Summary _ DATE OF ADMISSION: 10/08/2019 DATE OF DISCHARGE: 10/11/2019 Patient left AGAINST MEDICAL ADVICE REASON FOR ADMISSION: 68 years old female with past medical history of end-stage renal disease, on hemodialysis, hypertension, presented for not having dialysis for 3 days. Patient recently was admitted to [facility] and subsequently was discharged to the longterm facility . Patient left the longterm facility , reporting that it was dirty. Patient reported feeling weak and nauseous. Patient denied chest pain She denied abdominal pain. She denied leg swelling. Upon evaluation patient was afebrile. but required supplemental oxygen with 4 L of oxygen via nasal cannula with pulse oximetry 92%. Laboratory work-up revealed no leukocytosis ,hemoglobin 8.9 ,hematocrit 27.2, platelet count 174. Stable electrolytes. BUN 93, creatinine 11.5 . Glucose 145. Calcium 7.2. Stable LFT. Troponin elevated 1.427, pro BNP > 35,000. EKG revealed sinus rhythm with right bundle branch block. Albumin 3.0 . Chest x-ray demonstrated interstitial congestion and possible mild airspace edema. Patient subsequently admitted for further management to stepdown unit. CONSULTANTS: supercharger mechanic dr. Akins [facility] COURSE: Patient admitted to direct observational unit. Wheel Mill Operator consulted. Patient received urgent hemodialysis with ultrafiltration. Volumes , renal parameters and electrolytes were closely monitored. Renvela continued. Antihypertensive regimen was titrated. Supplemental oxygen provided to keep pulse oximetry above 92%. Bronchodilator treatment provided via N as needed. Cardiology consult was requested. Serial troponin were ordered. Second troponin trended down to 1.162. Patient started on antiplatelet therapy with Aspirin. Beta blockage provided. Nitroglycerin was on board as needed. Blood pressure was managed with hydralazine and beta-karena, clonidine was on board as needed for blood pressure spikes. DVT prophylaxis provided. Lipid panel was stable. Hemoglobin and hematocrit were closely monitored with goal to keep hemoglobin above 7. Patient started on Epogen 3x week. Prior to leaving AMA. hemoglobin 9.6 hematocrit 29. Patient decided to leave AGAINST MEDICAL ADVICE. The risks and consequences of signing AGAINST MEDICAL ADVICE were discussed with patient in detail. Patient verbalized understanding, nevertheless signed AMA form and left. Hemoglobin hematocrit were closely monitored with goal to keep hemoglobin above 7. Patient was on Epogen 3 times a week. FINAL DIAGNOSES: Hypertensive crisis Fluid overload End-stage renal disease , on hemodialysis Elevated troponin Shortness of breath Anemia of chronic kidney disease I have been assigned to dictate discharge summary for this account. I was not involved in the patient's management. Tia Kam NP Oct 12, 2019 10:17
== END 2019-10-11 18:00 | disposition left against medical advice (07) | DRG 291 ==
LOC: EMR 15:49 → 2W 15:55 → EDBEDREQ 18:33 → EDBEDREQSVC 18:34
PROC: 5A1D70Z Performance of Urinary Filtration, Intermittent, Less than 6 Hours Per Day (ICD-10-PCS; principal; 2019-10-08)
DX: I13.2 Hypertensive heart and chronic kidney disease with heart failure and with stage 5 chronic kidney disease, or end stage renal disease (principal); N18.6 End stage renal disease; I50.33 Acute on chronic diastolic (congestive) heart failure; I45.10 Unspecified right bundle-branch block; I16.0 Hypertensive urgency; R74.8 Abnormal levels of other serum enzymes; D63.1 Anemia in chronic kidney disease; E87.70 Fluid overload, unspecified; Z88.0 Allergy status to penicillin; Z88.8 Allergy status to other drugs, medicaments and biological substances
CPT/HCPCS: 36415; 71045; 80053; 80061; 83880; 84443; 84484; 85025; 87081; 87340; 93005; 96374; 99291; J2405